=== PATIENT | female | born 1960 | race Caucasian/White ===

== ENCOUNTER 2019-08-05 11:38 | Outpatient (CLI) | payer OTHER, SELFPAY ==
--- NOTE | ~2019-08-05 | XR_ITS ---
EXAMINATION: XR shoulder RT min 2V DATE: 08/05/2019 12:19 INDICATION: Right shoulder injury and pain. TECHNIQUE: 4 views of right shoulder were obtained. COMPARISON: None. FINDINGS: Bone alignment is normal. No fracture. Glenoid humeral joint is normal. There is mild acrom ioclavicular joint osteoarthritis. IMPRESSION: 1. Mild right acromioclavicular joint osteoarthritis. Reviewed, dictated and finalized at location A. LOGY TEACHER
== END 2019-08-05 11:39 | disposition home or self-care (01) ==
LOC: ANHIMG 11:47
PROVIDERS: PCP Internal Medicine; Visit Provider Internal Medicine
DX: M19.011 Primary osteoarthritis, right shoulder (principal)
CPT/HCPCS: 73030

== ENCOUNTER 2020-10-27 23:06 | Emergency (ER) | payer OTHER, SELFPAY ==
--- NOTE | ~2020-10-27 | CT_ITS ---
EXAMINATION: CT brain wo con INDICATION: Weakness COMPARISON: 01/10/2018 TECHNIQUE: Standard unenhanced head CT. The dose-length product (DLP) was 605.33 mGy-cm. The mA was a djusted according to patient size. Iterative reconstruction technique was employed. FINDINGS: Motion artifact slightly limits the examination. There is no intracranial hemorrhage, acute infarction, or abnormal mass lesion. The ventricles are normal. There is no abnormal mass effect or midline shift. The burgos-white matter differentiation is normal. The basal cisterns are patent. The or bits are normal. The paranasal sinuses, mastoids and calvarium are normal. IMPRESSION: 1. No acute intracranial abnormality. Reviewed, dictated and finalized at location A.
--- NOTE | ~2020-10-27 | XR_ITS ---
EXAMINATION: XR chest 1V 10/27/2020 23:56 INDICATION: Weakness. Status post multiple falls. PROCEDURE: AP upright view of the chest COMPARISON: 01/11/2018 FINDINGS: There are lingular infiltrates which may represent atelectasis/scarring versus pneumonia. T he cardiomediastinal silhouette is within normal limits. There are no pleural effusions. There is n o pneumothorax suspected. IMPRESSION: 1: Lingular infiltrates, differential diagnosis includes atelectasis/scarring versus developing pneu monia. Reviewed, dictated and finalized at location A. IMPRESSION: 1: Lingular infiltrates, differential diagnosis includes atelectasis/scarring versus developing pneumonia.
[2020-10-27 23:11] VITALS: BP 100/69; PULSE 73; RESP 16; TEMP 36.4; O2SAT 100
[2020-10-27 23:52] LABS: Basophils Absolute Auto 0.1 K/mm3 (0.0-0.1); Basophils Percent Auto 1.2 % (0.2-1.2); Eosinophils Absolute Auto 0.2 K/mm3 (0-0.3); Eosinophils Percent Auto 3.7 % (0-4.4); Hematocrit 35.9 % (37.0-47.0); Hemoglobin 11.8 g/dL (12.0-15.0); Immature Granulocyte Absolute 0.05 K/mm3 (0.00-0.031); Immature Granulocyte Percent A 0.8 % (0-0.5); Lymphocytes Absolute Auto 1.71 K/mm3 (0.9-3.2); Lymphocytes Percent Auto 26.2 % (18.3-44.2); Mean Corpuscular HGB Conc 32.9 g/dl (32-36); Mean Corpuscular Hemoglobin 31.9 pg (26-34); Mean Platelet Volume 9.8 fl (7.4-10.4); Monocytes Absolute Auto 0.9 K/mm3 (0.1-0.6); Neutrophils Absolute Auto 3.5 K/mm3 (1.3-6.7); Neutrophils Percent Auto 54.1 % (45.5-73.1); Platelet Count Result 165 k/mm3 (150-375); Red Cell Distribution Width 15.9 % (11.5-14.5); White Blood Count 6.5 K/mm3 (4.5-10.0)
[2020-10-27 23:56] LABS: Anion Gap 5 mmol/L (8-16); Blood Urea Nitrogen 21 mg/dL (7-17); Calcium 9.7 mg/dL (8.4-10.2); Carbon Dioxide 37 mmol/L (22-30); Chloride 95 mmol/L (98-107); Estimated CRCL calculation 6 ml/min; Estimated Glomerular Filt Rate 11; Glucose 99 mg/dL (65-105); INR 0.9; Lactic Acid Reflex 1.7 mmol/L (0.7-2.1); Potassium 3.1 mmol/L (3.4-5.0); Prothrombin Time 12.9 Seconds (11.1-14.7); Sodium 137 mmol/L (137-145)
[2020-10-27 23:57] LABS: Partial Thromboplastin Time 26.6 SECONDS (22.3-36.8)
[2020-10-28 00:09] LABS: Troponin I < 0.012 ng/mL (0.000-0.034)
[2020-10-28] MEDS: LACTATED RINGERS 1,000 ML 250 ML IV CONT (00:13)
--- NOTE | 2020-10-28 00:17 | ED.WEAKNESS ---
HPI - Weakness General Chief complaint: Weakness Stated complaint: weakness Time Seen by Provider: 10/27/20 23:27 Source: patient Mode of arrival: ambulatory Limitations: no limitations History of Present Illness HPI Narrative: Patient is a 60-year-old female brought in by EMS after a ground-level fall, near syncopal episode prior to arrival. Patient states that prior to the event she was smoking marijuana. Patient denies LOC. Patient states that she was asymptomatic prior to the fall. She denies any head, neck, chest, back or any extremity pain/injury. Patient states that she is back to baseline and has no complaints at this time. Per EMS, blood pressure was 72/46, was given 200 mL of NS, brought it back up to 90/60's. Related Data Allergies Allergy/AdvReac Type Severity Reaction Status Date / Time hydrocodone Allergy Severe RASH Verified 01/10/18 19:07 aspirin Allergy Mild Unverified 01/10/18 19:07 ibuprofen Allergy Mild Unverified 01/10/18 19:07 Review of Systems Review of Systems: All systems reviewed & are unremarkable except as noted in HPI and below Constitutional: Constitutional: Denies body ache(s), Denies chills, Denies excessive sweating, Denies fatigue, Denies fever(s), Denies headache(s), Denies lethargy, Denies malaise and Denies weight loss Eyes: Eyes: Denies blurry vision, Denies change in vision and Denies loss of vision ENT: Denies dizziness, Denies ear discharge, Denies headache(s), Denies lip swelling, Denies epistaxis, Denies nasal congestion, Denies neck pain, Denies throat swelling and Denies tongue swelling Cardiovascular: Cardiovascular: Denies chest pain, Denies chest pain at rest, Denies chest pain with activity, Denies diaphoresis, Denies rapid heart rate, Denies edema, Denies irregular heart rhythm, Denies lightheadedness, Denies palpitations, Denies dyspnea and Denies dyspnea on exertion Respiratory: Respiratory: Denies chest congestion, Denies cough, Denies hemoptysis, Denies dyspnea and Denies dyspnea on exertion Gastrointestinal: Gastrointestinal: Denies abdominal pain, Denies melena, Denies hematochezia, Denies diarrhea, Denies nausea, Denies vomiting and Denies hematemesis Musculoskeletal: Musculoskeletal: Denies abnormal gait, Denies deformity, Denies joint swelling, Denies limited range of motion, Denies neck pain and Denies numbness Neurologic: Denies Abnormal speech present, Denies abnormal gait, Denies confusion, Denies dizziness, Denies headache(s), Denies focal weakness, Denies loss of vision, Denies numbness, Denies Other visual disturbances, Denies Sensory deficit (Neuro) and Denies weakness Psychiatric: Psychiatric: Denies confusion, Denies depression, Denies auditory hallucinations, Denies homicidal ideation and Denies suicidal ideation Endocrine: Endocrine: Denies cold intolerance, Denies excessive sweating, Denies fatigue, Denies heat intolerance and Denies palpitations Hematologic/Lymphatic: Hematologic/Lymphatic: Denies easy bleeding and Denies easy bruising Allergic/Immunologic: Allergic/Immunologic: Denies lip swelling, Denies throat swelling and Denies tongue swelling PMFSH Comments Past medical history: End-stage renal disease on dialysis Family history: Noncontributory Social history: Positive for smoker, no EtOH, occasional marijuana use Exam Const: General: cooperative, healthy appearing, comfortable, no acute distress, well developed, alert and awake; No confusion Nutritional Appearance: thin Orientation/consciousness: oriented to person, oriented to place, oriented to time, patient oriented x3 and No confusion Limitations: no limitations Other: Frail HENMT: Head: normal to inspection, normocephalic and atraumatic Ears: hearing grossly normal bilaterally, TM normal on the right and TM normal on the left General nose exam: Normal external nose present, Normal nares present and No nasal discharge present Face and sinus: normal facial exam Mouth: Yes Normal oral an
--- NOTE | 2020-10-28 00:28 | ECG_ITS ---
Measurements Intervals [place] Rate: 80 P: 63 WA: 153 QRS: 6 QRSD: 90 T: 49 QT: 391 QTc: 453 Interpretive Statements SINUS RHYTHM INCOMPLETE RIGHT BUNDLE BRANCH BLOCK BASELINE ARTIFACT- I, II, III BORDERLINE ECG Electronically Signed On 10-28-2020 7:02:06 CDT by Earl Sethi D.O.
[2020-10-28 01:12] VITALS: BP 134/82; PULSE 86; RESP 28; TEMP 36.6; O2SAT 100
[2020-10-28] MEDS: POTASSIUM CHLORIDE 20 MEQ PACKET (FOR LIQUID) PO (01:12)
== END 2020-10-28 02:41 | disposition home or self-care (01) ==
PROVIDERS: Emergency Provider Emergency Medicine; PCP Internal Medicine
DX: R55 Syncope and collapse (principal); N18.6 End stage renal disease; Z99.2 Dependence on renal dialysis; E87.6 Hypokalemia; F17.200 Nicotine dependence, unspecified, uncomplicated
CPT/HCPCS: 36415; 70450; 71045; 80048; 83605; 84484; 85025; 85610; 85730; 93005; 96360; 99284; A9270; J7120

== ENCOUNTER 2020-12-17 23:56 | Emergency (ER) | payer OTHER, SELFPAY ==
[2020-12-17 23:58] VITALS: BP 112/84; PULSE 81; RESP 14; TEMP 36.4; O2SAT 100
[2020-12-18 00:04] VITALS: PULSE 79
--- NOTE | 2020-12-18 00:13 | ED.GENADULT ---
HPI - General Adult General Chief complaint: Unspecified Stated complaint: not feeling right History of Present Illness HPI narrative: 60 yo female w/ h/o ESRD on dialysis presents to the ED for not feeling right . She reports that she was sitting outside in the heat when friends noted that she slumped over and started jerking. She believes that she was having a seizure. She reports history of one previous seizure. During this event she denies and change in consciousness, dizziness, weakness or falls. She does report being diaphoretic and feeling strange. No CP, SOB, palpitations, vomiting, diarrhea. Related Data Allergies Allergy/AdvReac Type Severity Reaction Status Date / Time hydrocodone Allergy Severe RASH Verified 12/18/20 00:26 aspirin Allergy Mild Unknown Unverified 12/18/20 00:26 ibuprofen Allergy Mild Unknown Unverified 12/18/20 00:26 Review of Systems Review of Systems: All systems reviewed & are unremarkable except as noted in HPI and below Eyes: Eyes: Reports no additional eye complaints ENT: Reports system reviewed and no additional complaints, except as documented Cardiovascular: Cardiovascular: Reports no additional cardiovascular complaints Respiratory: Respiratory: Denies dyspnea Gastrointestinal: Gastrointestinal: Reports no additional gastrointestinal complaints Neurologic: Reports system reviewed and no additional complaints, except as documented, Denies confusion, Denies dizziness, Denies syncope and Denies headache(s) [facility] Past Medical History Medical History (Updated 12/24/20 @ 15:36 by Brenden Philip MD) ESRD (end stage renal disease) on dialysis Social History Social History (Updated 12/24/20 @ 15:36 by Brenden Philip MD) Smoking status: Current every day smoker Alcohol intake: current Exam Const: General: no acute distress and alert Orientation/consciousness: patient oriented x3 HENMT: Head: normal to inspection Neck: Neck: normal visual inspection Resp: Effort & Inspection: normal respiratory effort Auscultation: clear to auscultation bilaterally, no rales, no rhonchi and no wheezes Cardio: Jugular venous distension: no JVD Rate: regular rate Rhythm: regular rhythm Heart sounds: no murmurs GI: Inspection: non-distended GI Palp: Yes Soft to palpation and No Tenderness to palpation present (GI) Skin: General skin exam: normal color Neuro: General: patient oriented x3 and moves all extremities Speech: normal speech Extrem: General: no edema Psych: Appearance: well kempt Affect: normal affect Course Vital Signs Vital signs: Vital Signs Temperature 36.4 C L 12/17/20 23:58 Pulse Rate 81 12/17/20 23:58 Respiratory Rate 14 12/17/20 23:58 Blood Pressure 112/84 12/17/20 23:58 Pulse Oximetry 100 12/17/20 23:58 Temperature 36.4 C L 12/17/20 23:58 Pulse Rate 88 12/18/20 01:34 Respiratory Rate 16 12/18/20 01:34 Blood Pressure 102/66 12/18/20 01:34 Pulse Oximetry 100 12/18/20 01:34 Medical Decision Making MDM Narrative Medical decision making narrative: Symptoms do not sound consistent with seizure. Could be near syncopal episode, although description is not typical. Labs reassuring. Medical Records Medical records reviewed: Yes I reviewed the external patient's medical records. Vital Signs Vital Signs: Vital Signs Temperature 36.4 C L 12/17/20 23:58 Pulse Rate 81 12/17/20 23:58 Respiratory Rate 14 12/17/20 23:58 Blood Pressure 112/84 12/17/20 23:58 Pulse Oximetry 100 12/17/20 23:58 Temperature 36.4 C L 12/17/20 23:58 Pulse Rate 88 12/18/20 01:34 Respiratory Rate 16 12/18/20 01:34 Blood Pressure 102/66 12/18/20 01:34 Pulse Oximetry 100 12/18/20 01:34 Lab Data Lab results reviewed: Yes I reviewed the patient's lab results. Result diagrams: 12/18/20 00:26 12/18/20 00:54 Labs: Lab Results 12/18/20 12/18/20 12/18/20 Range/Units 00:26 00:26
[2020-12-18 00:32] LABS: Basophils Absolute Auto 0.1 K/mm3 (0.0-0.1); Basophils Percent Auto 1.1 % (0.2-1.2); Eosinophils Absolute Auto 0.3 K/mm3 (0-0.3); Eosinophils Percent Auto 3.6 % (0-4.4); Hematocrit 38.6 % (37.0-47.0); Hemoglobin 12.2 g/dL (12.0-15.0); Immature Granulocyte Absolute 0.02 K/mm3 (0.00-0.031); Immature Granulocyte Percent A 0.3 % (0-0.5); Lymphocytes Absolute Auto 2.09 K/mm3 (0.9-3.2); Lymphocytes Percent Auto 28.1 % (18.3-44.2); Mean Corpuscular HGB Conc 31.6 g/dl (32-36); Mean Corpuscular Hemoglobin 31.7 pg (26-34); Mean Corpuscular Volume 100.3 fl (80-100); Mean Platelet Volume 10.6 fl (7.4-10.4); Monocytes Absolute Auto 0.9 K/mm3 (0.1-0.6); Monocytes Percent Auto 12.2 % (2.6-8.5); Neutrophils Absolute Auto 4.1 K/mm3 (1.3-6.7); Neutrophils Percent Auto 54.7 % (45.5-73.1); Platelet Count Result 161 k/mm3 (150-375); Red Blood Count 3.85 M/mm3 (4.2-5.4); Red Cell Distribution Width 13.9 % (11.5-14.5); White Blood Count 7.4 K/mm3 (4.5-10.0)
[2020-12-18] MEDS: SODIUM CHLORIDE 0.9% IV 250 ML 999 ML IV CONT (00:32)
[2020-12-18 00:47] LABS: Ethanol < 10 mg/dL (<10)
[2020-12-18 01:00] VITALS: BP 99/65; PULSE 83; RESP 14; O2SAT 99
[2020-12-18 01:15] LABS: Anion Gap 8 mmol/L (8-16); Blood Urea Nitrogen 22 mg/dL (7-17); Calcium 9.2 mg/dL (8.4-10.2); Carbon Dioxide 34 mmol/L (22-30); Chloride 94 mmol/L (98-107); Estimated Glomerular Filt Rate 13; Glucose 92 mg/dL (65-105); Magnesium 2.1 mg/dL (1.6-2.3); Potassium 3.9 mmol/L (3.4-5.0); Sodium 136 mmol/L (137-145)
[2020-12-18 01:34] VITALS: BP 102/66; PULSE 88; RESP 16; O2SAT 100
== END 2020-12-18 01:36 | disposition home or self-care (01) ==
PROVIDERS: Emergency Provider Emergency Medicine; PCP Internal Medicine
DX: E86.0 Dehydration (principal); N18.6 End stage renal disease; Z99.2 Dependence on renal dialysis; F17.200 Nicotine dependence, unspecified, uncomplicated
CPT/HCPCS: 36415; 80048; 80307; 83735; 85025; 96360; 99283; J7040

== ENCOUNTER 2021-01-12 11:50 | Emergency (ER) | payer OTHER, SELFPAY ==
[2021-01-12] VITALS (23 sets, daily range): BP systolic 99–140; BP diastolic 57–83; PULSE 63–88; RESP 12–20; TEMP 36.7–36.9; O2SAT 97–100
--- NOTE | 2021-01-12 14:57 | PC.NURSE ---
[facility] called to report that pt has not had dialysis since 01/07 due to clogged access.
--- NOTE | 2021-01-12 17:32 | ED.GENADULT ---
HPI - General Adult General Chief complaint: Extremity Injury, Lower Stated complaint: blocked dialysis port Time Seen by Provider: 01/12/21 16:56 Source: patient and RN notes reviewed Limitations: no limitations History of Present Illness HPI narrative: Patient is 60 years old white female, came to the emergency room because her dialysis cath is not working located on the right thigh. Last dialysis was on January 09. Patient went to dialysis center 4 days ago and could not dialyze her at that time. Received a phone call yesterday to go to [facility] for management. Patient is telling me that she was sitting in the emergency room for 8 hours, got tired then left home. Currently patient denying any fever, chills, nausea, vomiting, chest pain, shortness of breath, headache. Related Data Allergies Allergy/AdvReac Type Severity Reaction Status Date / Time hydrocodone Allergy Severe RASH Verified 01/12/21 17:00 aspirin Allergy Mild Unknown Verified 01/12/21 17:00 ibuprofen Allergy Mild Unknown Verified 01/12/21 17:00 acetaminophen [From Vicodin] Allergy Rash Verified 01/12/21 17:00 Review of Systems Review of Systems: CONSTITUTIONAL: Denies fever, chills, or sweats. EYES: Denies visual changes, redness, or discharge. ENT: Denies rhinorrhea, congestion, sore throat, or otalgia. CARDIOVASCULAR: Denies chest pain, palpitations, or edema. RESPIRATORY: Denies cough or dyspnea. GASTROINTESTINAL: Denies abdominal pain, nausea, vomiting, or diarrhea. GENITOURINARY: Denies dysuria or hematuria. SKIN: Denies rash or itching. MUSCULOSKELETAL: Denies back pain, joint pain, or myalgia. NEUROLOGIC: Denies headache, numbness, or weakness. PSYCHIATRIC: Denies anxiety or depression. PMFSH Past Medical History Medical History ESRD (end stage renal disease) on dialysis Social History Social History Smoking status: Current every day smoker Alcohol intake: current Exam Narrative: General appearance: Well-developed, well-nourished Skin: Normal color Head: Normocephalic, nontraumatic Eyes: Clear conjunctiva ENT: Oropharynx normal, ears normal, nose normal Neck: Supple, nontender Chest and respiratory: Airway patent, no respiratory distress, no accessory muscle use Heart: Regular rate/rhythm Abdomen: Soft, nontender, no organomegaly, quiet bowel sounds Vascular: Normal peripheral pulses, normal capillary refill. Musculoskeletal: Normal range of motion, nontender back Neurologic: Alert and oriented ?3, RESERVATIONS AGENT is normal as tested, no gross motor deficit Course Course Emergency Course: Stable Consultations Consultation #1: DR FAJARDO, hospitalist at [facility] who accepted patient transfer Date: 01/12/21 Time: 21:54 Consultation #2: Jasen Huynh. Patient civilian technician. Patient probably need interventional radiologist or a general surgeon for new shunt placement. Send patient to [facility] for management. Date: 01/12/21 Time: 22:00 Consultation #3: Dr. Mcmillan, ED of [facility] who accepted patient transfusion to the ED Date: 01/12/21 Time: 22:01 Vital Signs Vital signs: Vital Signs Temperature 36.7 C 01/12/21 12:07 Pulse Rate 88 01/12/21 12:07 Respiratory Rate 16 01/12/21 12:07 Blood Pressure 140/74 01/12/21 12:07 Pulse Oximetry 100 01/12/21 12:07 Temperature 36.9 C 01/12/21 16:50 Pulse Rate 83 01/12/21 17:01 Respiratory Rate 14 01/12/21 17:01 Blood Pressure 120/79 01/12/21 17:01 Pulse Oximetry 99 01/12/21 17:01 Medical Decision Making Vital Signs Vital Signs: Vit
--- NOTE | 2021-01-12 18:04 | ECG_ITS ---
Measurements Intervals [place] Rate: 74 P: 56 UT: 137 QRS: -2 QRSD: 80 T: 47 QT: 374 QTc: 415 Interpretive Statements SINUS RHYTHM WITH SINUS ARRHYTHMIA NORMAL ECG Electronically Signed On 01-12-2021 18:50:59 CDT by Earl Sethi D.O.
[2021-01-12 20:05] LABS: Basophils Absolute Auto 0.1 K/mm3 (0.0-0.1); Basophils Percent Auto 1.4 % (0.2-1.2); Eosinophils Absolute Auto 0.4 K/mm3 (0-0.3); Eosinophils Percent Auto 5.6 % (0-4.4); Hematocrit 37.2 % (37.0-47.0); Hemoglobin 11.9 g/dL (12.0-15.0); Immature Granulocyte Absolute 0.03 K/mm3 (0.00-0.031); Immature Granulocyte Percent A 0.4 % (0-0.5); Lymphocytes Absolute Auto 1.96 K/mm3 (0.9-3.2); Lymphocytes Percent Auto 28.3 % (18.3-44.2); Mean Corpuscular Hemoglobin 31.4 pg (26-34); Mean Corpuscular Volume 98.2 fl (80-100); Mean Platelet Volume 10.2 fl (7.4-10.4); Monocytes Absolute Auto 0.7 K/mm3 (0.1-0.6); Monocytes Percent Auto 9.5 % (2.6-8.5); Neutrophils Absolute Auto 3.8 K/mm3 (1.3-6.7); Neutrophils Percent Auto 54.8 % (45.5-73.1); Platelet Count Result 288 k/mm3 (150-375); Red Blood Count 3.79 M/mm3 (4.2-5.4); Red Cell Distribution Width 14.3 % (11.5-14.5); White Blood Count 6.9 K/mm3 (4.5-10.0)
[2021-01-12 20:06] LABS: Anion Gap 10 mmol/L (8-16); Blood Urea Nitrogen 52 mg/dL (7-17); Calcium 9.5 mg/dL (8.4-10.2); Carbon Dioxide 22 mmol/L (22-30); Chloride 109 mmol/L (98-107); Estimated CRCL calculation 6 ml/min; Estimated Glomerular Filt Rate 6; Glucose 81 mg/dL (65-110); Potassium 4.8 mmol/L (3.4-5.0); Sodium 141 mmol/L (137-145)
--- NOTE | 2021-01-12 20:45 | PC.NURSE ---
Updated patient with Dr Mcdaniels. Patient will be transferred to [facility]. Transfer due to [facility] having interventional radiology. Pt agreeable to transfer
--- NOTE | 2021-01-12 21:59 | PC.NURSE ---
Report called to ADOLFO Rendon, at [facility] at [phone]. ([phone]). Patient has been accepted to room [address] Chiu. Hill, loading unit tool setter, setting up EMS transport at this time.
--- NOTE | 2021-01-12 22:04 | PC.NURSE ---
made contact with [email or web address] to transfer pt to [facility] with [id number]
--- NOTE | 2021-01-12 22:41 | PC.NURSE ---
pt seen attempting to walk out to the parking lot to stretch her legs because theyre stiff. this rn informed pt that she would have to stay in her room and isn't allowed to walk around the parking lot. pt ambulated back to room H3 at this time.
--- NOTE | 2021-01-12 23:48 | PC.NURSE ---
[facility] has arrived and is aware that pt is going to [facility]
== END 2021-01-13 00:03 | disposition short-term general hospital (02) ==
PROVIDERS: Emergency Provider Emergency Medicine; PCP Internal Medicine
DX: T82.49XA Other complication of vascular dialysis catheter, initial encounter (principal); N18.6 End stage renal disease; F17.210 Nicotine dependence, cigarettes, uncomplicated
CPT/HCPCS: 36415; 80048; 85025; 93005; 99285

== ENCOUNTER 2021-02-01 13:23 | Outpatient (CLI) | payer OTHER, SELFPAY ==
--- NOTE | ~2021-02-01 | XR_ITS ---
EXAMINATION: XR forearm RT 2V INDICATION: Right forearm pain, initial encounter TECHNIQUE: Two views of the right forearm are obtained on three radiographs. COMPARISON: 06/11/2010 FINDINGS: There is an acute, traumatic, closed, oblique fracture of the distal ulna which does not ap pear to involve the distal articular surface. Soft tissue swelling surrounds the fracture. No additio nal acute osseous findings are evident. 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 IMPRESSION: 1. Acute fracture of the distal ulna. Reviewed, dictated and finalized at location A.
== END 2021-02-01 13:24 | disposition home or self-care (01) ==
PROVIDERS: PCP Internal Medicine; Visit Provider Internal Medicine
DX: M79.631 Pain in right forearm (principal); S52.601A Unspecified fracture of lower end of right ulna, initial encounter for closed fracture
CPT/HCPCS: 73090

== ENCOUNTER 2021-08-04 20:07 | Inpatient (IN) | payer OTHER, SELFPAY ==
--- NOTE | ~2021-08-04 | CT_ITS ---
EXAMINATION: CT brain wo con DATE: 08/06/2021 14:02 INDICATION: Circumferential speech. Altered mental status. TECHNIQUE: Computed tomography (CT) of the head was performed without intravenous contrast. The mA wa s adjusted according to patient size. Iterative reconstruction technique was employed. The dose-lengt h product was 605.33 mGy-cm. COMPARISON: Head CT 10/28/2020 FINDINGS: There is no intracranial hemorrhage, acute infarction, or abnormal intracranial mass lesion . The ventricles are normal in size. The orbits are normal. The paranasal sinuses are clear. The mast oid air cells are normal. IMPRESSION: 1. Normal brain. Reviewed, dictated and finalized at location A. ET RISK SPECIALIST IMPRESSION: 1. Normal brain.
[2021-08-04 20:31] VITALS: BP 136/83; PULSE 117; RESP 18; TEMP 36.7; O2SAT 100
--- NOTE | 2021-08-04 20:32 | ED.PSYCH ---
HPI - Psych General Chief Complaint: Psychiatric Symptoms <Slava Joseph MD - Last Filed: 08/04/21 22:15> Stated Complaint: PSYCH ISSUE <Slava Joseph MD - Last Filed: 08/04/21 22:15> Time Seen by Provider: 08/04/21 20:10 <Slava Joseph MD - Last Filed: 08/04/21 22:15> History of Present Illness HPI Narrative: Patient is a 61-year-old female who presents the ER by EMS for psychiatric evaluation. Reports she has not been taking her medications at home. She was found outside of her home naked when EMS arrived. Patient denies SI/HI. She has very flat affect and will not give me additional information. She cannot tell me what she takes for her mental health. <Slava Joseph MD - Last Filed: 08/04/21 22:15> Related Data Allergies/Adverse Reactions: Allergies Allergy/AdvReac Type Severity Reaction Status Date / Time hydrocodone Allergy Severe RASH Verified 01/12/21 17:00 aspirin Allergy Mild Unknown Verified 01/12/21 17:00 ibuprofen Allergy Mild Unknown Verified 01/12/21 17:00 acetaminophen [From Vicodin] Allergy Rash Verified 01/12/21 17:00 <Slava Joseph MD - Last Filed: 08/04/21 22:15> Review of Systems Review of Systems: All systems reviewed & are unremarkable except as noted in HPI and below <Slava Joseph MD - Last Filed: 08/04/21 22:15> Constitutional: Constitutional: Denies chills and Denies fever(s) <Slava Joseph MD - Last Filed: 08/04/21 22:15> Cardiovascular: Cardiovascular: Denies chest pain and Denies radiating jaw, neck or arm pain <Slava Joseph MD - Last Filed: 08/04/21 22:15> Respiratory: Respiratory: Denies cough and Denies dyspnea <Slava Joseph MD - Last Filed: 08/04/21 22:15> Gastrointestinal: Gastrointestinal: Denies abdominal pain, Denies nausea and Denies vomiting <Slava Joseph MD - Last Filed: 08/04/21 22:15> Psychiatric: Psychiatric: Denies anxiety, Reports depression, Denies homicidal ideation and Denies suicidal ideation <Slava Joseph MD - Last Filed: 08/04/21 22:15> [facility] Past Medical History Medical History: Medical History Bipolar 1 disorder ESRD (end stage renal disease) on dialysis Hypertension <Slava Joseph MD - Last Filed: 08/04/21 22:15> Social History Social History: Social History Smoking status: Current every day smoker Alcohol intake: current Substance use type: does not use <Slava Joseph MD - Last Filed: 08/04/21 22:15> Exam Narrative: GENERAL: Well-appearing, thin, and in no acute distress. HEAD: Normocephalic, atraumatic. EYES: PERRL and EOMI. ENT: Mucous membranes moist. CHEST: Clear to auscultation. No respiratory distress. HEART: Regular rate and rhythm. Normal peripheral pulses. ABDOMEN: Soft, nontender, nondistended. EXTREMITIES: Normal range of motion. No edema. SKIN: Warm, dry, no rash. NEURO: Alert and oriented x3. PSYCH: Flat affect, not responding to internal stimuli, denies SI/HI. <Slava Joseph MD - Last Filed: 08/04/21 22:15> Course Reevaluation(s) Reevaluation #1: Patient has been refusing to give blood. I been in to speak with the patient about medical evaluation given her presentation the ER. Patient cannot hold a conversation to explain why she ended up in the ER. She said she was naked because she is having sex with the magic man. She cannot verbalize why she ended up in the emergency department. Discussed with her that we will give her medication to obtain blood work since is her duty to ensure that she is medically stable since she cannot hold conversation in regards anything that occurred this evening. NAEEM to Dr. Marie. <Slava Joseph MD - Last Filed: 08/04/21 22:15> Received signout pending labs and reassessment. Labs returned and are stable given her chronic conditions she is medically stab
[2021-08-04 22:19] VITALS: BP 99/50; PULSE 77; RESP 18; TEMP 37; O2SAT 100
[2021-08-04] MEDS: LORazepam INJ (*CRX) 2 MG/ML VIAL IM (22:23)
[2021-08-04 22:51] LABS: Basophils Absolute Auto 0.1 K/mm3 (0.0-0.1); Basophils Percent Auto 1.3 % (0.2-1.2); Eosinophils Absolute Auto 0.1 K/mm3 (0-0.3); Eosinophils Percent Auto 1.8 % (0-4.4); Hematocrit 33.4 % (37.0-47.0); Immature Granulocyte Absolute 0.02 K/mm3 (0.00-0.031); Immature Granulocyte Percent A 0.3 % (0-0.5); Lymphocytes Absolute Auto 1.58 K/mm3 (0.9-3.2); Lymphocytes Percent Auto 23.2 % (18.3-44.2); Mean Corpuscular HGB Conc 32.9 g/dl (32-36); Mean Corpuscular Hemoglobin 31.5 pg (26-34); Mean Corpuscular Volume 95.7 fl (80-100); Monocytes Absolute Auto 0.8 K/mm3 (0.1-0.6); Monocytes Percent Auto 12.1 % (2.6-8.5); Neutrophils Absolute Auto 4.2 K/mm3 (1.3-6.7); Neutrophils Percent Auto 61.3 % (45.5-73.1); Platelet Count Result 243 k/mm3 (150-375); Red Blood Count 3.49 M/mm3 (4.2-5.4); Red Cell Distribution Width 14.6 % (11.5-14.5); White Blood Count 6.8 K/mm3 (4.5-10.0)
[2021-08-04 23:04] LABS: Ethanol < 10 mg/dL (<10)
[2021-08-04 23:05] LABS: Alanine Aminotransferase 22 U/L (4-35); Albumin Level 4.7 g/dL (3.5-5.1); Alkaline Phosphatase 81 U/L (38-126); Anion Gap 15 mmol/L (8-16); Aspartate Amino Transferase 44 U/L (14-36); Bilirubin,Total 0.4 mg/dL (0.2-1.3); Blood Urea Nitrogen 52 mg/dL (7-17); Calcium 9.7 mg/dL (8.4-10.2); Carbon Dioxide 24 mmol/L (22-30); Chloride 100 mmol/L (98-107); Estimated CRCL calculation 6 ml/min; Estimated Glomerular Filt Rate 6; Glucose 80 mg/dL (65-110); Potassium 4.1 mmol/L (3.4-5.0); Sodium 139 mmol/L (137-145)
[2021-08-04 23:52] LABS: SARS-CoV-2 RNA PCR Negative
[2021-08-04 23:57] LABS: Color Urine Yellow (Yellow)
[2021-08-04 23:58] LABS: Blood Urine Trace (Negative)
[2021-08-04 23:59] LABS: Add Urine Microscopic? YES
[2021-08-05] VITALS (9 sets, daily range): BP systolic 107–140; BP diastolic 63–84; PULSE 62–118; RESP 12–20; TEMP 36.4–36.6; O2SAT 96–99
[2021-08-05] LABS: Appearance Urine Clear (Clear); Glucose Urine UA Negative (Negative); Ketones Urine 1+ mg/dL (Negative); Protein Urine 1+ mg/dL (Negative); Specific Grav Ur 1.015 (1.001-1.035); pH Urine 6.5 (5.0-9.0)
[2021-08-05 00:01] LABS: Leukocyte Esterase Ur Negative LEU/UL (Negative); Nitrate Urine Negative (Negative); Urobilinogen Urine 0.2 mg/dL (<2.0)
[2021-08-05 00:02] LABS: Bilirubin Urine 1+ (Negative); RBC Urine 0-2 /hpf (0-2); WBC Urine 0-3 /hpf (0-3)
[2021-08-05 00:25] LABS: Amphetamine Screen Urine Negative (Negative); Barbiturate Screen Urine Negative (Negative); Benzodiazepines Screen Urine Negative (Negative); Cannabinoid Screen Urine Positive (Negative); Cocaine Screen Urine Negative (Negative); Methadone Screen Urine Negative (Negative); Opiate Screen Urine Negative (Negative); Phencyclidine Screen Urine Negative (Negative)
--- NOTE | 2021-08-05 00:44 | PC.NURSE ---
PT IS MEDICALLY CLEAR TO BE EVALUATED BY [facility] AT THIS TIME.
--- NOTE | 2021-08-05 00:47 | PC.NURSE ---
[facility] CONTACTED, SOMEONE WILL BE OUT SHORTLY TO EVALUATE HER.
[2021-08-05] MEDS: traZODone HCL 25 MG TABLET PO (04:25)
--- NOTE | 2021-08-05 06:06 | PC.NURSE ---
Drilling Machine Runner from [facility] called asking for info about pt's dialysis schedule. Pt reports going to [facility] on Monday, , and Monday. [facility] stated they will call back.
--- NOTE | 2021-08-05 07:35 | PC.NURSE ---
Bedside report from ADOLFO Feldman. Pt sleeping at this time. No needs or requests. Door open and near nursing station.
--- NOTE | 2021-08-05 08:10 | PC.NURSE ---
Spoke with [facility], stated that pt is medically cleared for eval. [facility] stated they would be here for assess pt.
--- NOTE | 2021-08-05 08:32 | PM.CNNEP ---
Assessment and Plan Additional Plan 1. The patient has end-stage renal disease. She went to dialysis on Monday apparently. She is due for dialysis today. Her potassium is in good shape. We will use a 3K bath. Her volume status looks good as well. Will remove 1-2 L as tolerated. 2. The patient has hypertension. Her blood pressure is under good control. It is not clear what she is on for her blood pressure. Will try to get some records. 3. Patient has bipolar disorder. She will get back on her medications. Per hospitalist. 4. anemia hb 11. hold off on EPO 5. BRENDEN check phos tomorrow History of Present Illness Reason for Consult Consult date: 08/05/21 Chief Complaint Chief complaint: acute psychosis,dialysis patient History of Present Illness Narrative: Abby is a very pleasant 61-year-old lady who has multiple medical problems including end-stage renal disease on dialysis 3 times a week on Saturdays, hypertension, bipolar 1 disorder. The patient went to dialysis on Monday and the dialysis was apparently on room eventful. Yesterday evening she was found in front of her house without clothes on and confused. They called 911 and she was brought over here to [facility] for evaluation. She has stopped taking her medications for her bipolar. She is confused and somewhat agitated. She is due for dialysis today so renal consultation was requested. The patient has no shortness of breath. No belly pain. No chest pain. No nausea vomiting diarrhea or constipation. She will not tell me where she goes to dialysis but I do know the Dr. Jasen Armendariz is her manager of disaster recovery. He does not come here so I was asked to care for her while she is here. She does not drink. She says she smokes a few cigarettes per day. Review of Systems Review of Systems: Incompletely attained because of medical condition Constitutional: Constitutional: Reports no additional constitutional complaints Eyes: Eyes: Reports no additional eye complaints ENT: Reports system reviewed and no additional complaints, except as documented Cardiovascular: Cardiovascular: Reports no additional cardiovascular complaints Respiratory: Respiratory: Reports no additional respiratory complaints Gastrointestinal: Gastrointestinal: Reports no additional gastrointestinal complaints Musculoskeletal: Musculoskeletal: Reports no additional musculoskeletal complaints Neurologic: Reports system reviewed and no additional complaints, except as documented Psychiatric: Psychiatric: Reports as per HPI Endocrine: Endocrine: Reports no additional endocrine complaints PMFSH Past Medical History Medical History Bipolar 1 disorder ESRD (end stage renal disease) on dialysis Hypertension Social History Social History Smoking status: Former smoker Alcohol intake: current Substance use: never Substance use type: does not use Spiritual care concerns: No Meds Home Medications and Allergies Home Medications Medication Instructions Recorded Confirmed Type B complex with C 20-folic acid 1 cap PO DAILY 08/05/21 08/05/21 History [Triphrocaps] B complex-vitamin C-folic acid 1 tablet PO DAILY 08/05/21 08/05/21 History [Jackie-Ml] bupropion HCl 150 mg PO DAILY 08/05/21 08/05/21 History calcium acetate(phosphat bind) 667 mg PO TIDWM 08/05/21 08/05/21 History divalproex 250 mg PO TID 08/05/21 08/05/21 History simvastatin 40 mg PO HS 08/05/21 08/05/21 History Allergies Allergy/AdvReac Type Severity Reaction Status Date / Time hydrocodone Allergy Severe RASH Verified 08/05/21 10:50 aspirin Allergy Mild Unknown Verified 08/05/21 10:50 ibuprofen Allergy Mild Unknown Verified 08/05/21 10:50 Vital Signs Vital Signs - 24 hr 08/04/21 20:31 08/04/21 22:19 08/05/21 06:11 Temperature 36.7 C 37.0 C Pulse Rate
--- NOTE | 2021-08-05 10:30 | ADMGEN ---
This patient, Abby Wheatley, was admitted to Medical Room 348-01. Patient/family oriented to hospital policies and general routines including ID bracelet, bed and alarms, visiting hours, pain management, procedures, bathroom and other care routines, personal items, smoking policy, room service/diet, and visiting hours. Information on how to activate the Rapid Response Team has been discussed. Patient/Family are encouraged to report perceived risks to care and to ask questions if they do not understand what they are told or what they should do.
[2021-08-05 11:17] LABS: Hepatitis B Surface Antigen Negative (Negative)
--- NOTE | 2021-08-05 11:21 | PCCCNOTE ---
Addendum entered by Mirtha Martinez RN 08/05/21 19:14: Meghan has finished reassessing patient, states that she does not have any clinical grounds for inpatient admission or involuntary holding. Meghan states that patient reported hitting her head and asked if CT was done. Trena bedside RN requested to look, and CT was not done. Meghan asks if safety plan is needed, Trena called to hospitalist educational technology specialist, Irais Montoya but no answer. inside barrel lathe operator reaching out to hospitalist and bedside RN Trena will be giving report to maintenance technician 3rd shift and all will be reported to hospitalist Irais for orders and decisions. Addendum entered by Mirtha Martinez RN 08/05/21 18:01: Phone call received from Meghan at [facility], she will be coming back out to reassess patient and complete full involuntary paperwork, should be here in about 20 minutes. Screeners/bowling or skating front desk clerk notified, 2nd medical inside barrel lathe operator notified. Addendum entered by Mirtha Martinez RN 08/05/21 17:33: Late entry: Spoke with Aimee Barrera at [facility] at 1600 at [phone], She states they received referral but didn't go further since only had pages 1-2 of involuntary petition. She advises to have full petition sent. Called to Peggy at [place], she thought that she had seen it all together when she came but unsure. She states that possibly the doctor could do it or to call back to [facility] and they will either send someone out tonight or no matter what they will need to receive a call at 0400 as involuntary will need updated and patient will need reassessed. Double checked in chart on floor and in ER with no success. Called to [facility] spoke with intake, advised that involuntary petition missing pages 3-5 and need to be reassessed either tonight and full form completed or around 0400. Intake will call care partner back to inform of what they will do. Addendum entered by Mirtha Martinez RN 08/05/21 15:45: Called to [facility], per intake they do have referral and if a bed opens they will review it. Called to [facility] to see if referral has been received transferred to kindra , Called back then transferred to unit then transferred to Clinical Chair Lift Operator, left a requesting follow in regards to referral and requested a call back. Addendum entered by Mirtha Martinez RN 08/05/21 14:56: Called to [facility], spoke with bedside ADOLFO Alonso, advised that continuing to work on placement, but no placement found they need to call back to crisis at 0400 for reassessment, provided # [phone]. Celeste verbalized understanding. Called to Peggy at Crisis provided room # and phone # for [facility]. Addendum entered by Mirtha Martinez RN 08/05/21 12:03: Fax unsuccessful to [facility] and [facility], called to [facility] to confirm fax numbers. Peggy to call care partner back. Called to [facility] and confirmed fax # and called to [facility] and confirmed fax #. Refax'd to facilities. Original Note: Late entry 1121: Called by studio operations engineer in chargeADOLFO Alonso to ER to meet with Dr. Mcdaniels. Spoke with Dr. Mcdaniels, Hospitalist Dr. Eason requesting care coordination to assist with behavorial health placement as patient has medical needs. Called to Crisis, spoke with Lana that states that Peggy is at the hospital now. Spoke with Peggy in ER, assessment and involunatary form already completed last night. Peggy to work on placement that can accomodate dialysis needs. Called to Dr. Eason and left him a message that care coordination involved and assisting crisis with placement and provided phone number for call back. Care Coordination and Crisis calling facilities, Peggy: The following faciliites can not accept dialysis and inpatient bh: [facility], [facility], [facility], [facility], [facility], [facility], [facility], [facility], [facility], [facility]. Received a call back from Rosangela Stern, no beds today and no discharges but can call daily Possible but no current beds: [facility]. Per Peggy hartman
--- NOTE | 2021-08-05 12:31 | PM.EVENT ---
Event Note Event Note Event Note: pt is on dialysis. wicho it wel. she was seen at 12:15pm
--- NOTE | 2021-08-05 12:35 | PM.IMHP ---
H&P: HPI History of Present Illness Date/Time: 08/05/21 12:35 Chief Complaint: In need of psychiatric evaluation. Narrative: This is a 61-year-old with end-stage renal disease on hemodialysis, chronic anemia, and bipolar disorder who presented to the emergency department last evening via EMS in need of psychiatric evaluation. The patient is only a fair historian and as such some of the following information is obtained via a review of her electronic medical records. According to EMS documentation, police responded to a call at a local apartment complex after the patient was found outdoors acting strangely and without clothes. The patient would not elaborate on this. It is my understanding that she was evaluated by crisis who did not feel that she met criteria for inpatient and in fact the patient has adamantly denied suicidal and homicidal ideations. She does admit that she has not been compliant with her medication and her valproic acid level today was undetectable. She endorses being in a manic phase for ?quite a while? and she is okay with starting her medications again. Due to the uncertainty of her disposition and the fact that she was supposed to have dialysis today, she is being admitted overnight. The only complaint she has at the time my evaluation is of cramps in her legs which is typical for her on dialysis days, she is requesting the Sinemet that she takes on dialysis days. On exam she was noted to have an abrasion on the right cheek and she tells me that she slipped and fell into a brick wall but she sustained no injuries aside from the abrasion. Review of Systems Review of Systems: Twelve systems were reviewed. She denies fever, chills, and sweats. No headache. No cold or flu symptoms. No sick contacts. No chest pain or shortness of breath. No cough. No nausea, vomiting, or diarrhea. Except as documented, all other systems were reviewed and are negative. [facility] Past Medical History Medical History (Updated 08/05/21 @ 13:22 by Beverley Montoya PA-C) Bipolar disorder Carpal tunnel syndrome Chronic anemia Depression with anxiety End-stage renal disease on hemodialysis Secondary to lithium toxicity. Gastric ulcer History of ganglion cyst Hypertension Restless leg syndrome Surgical History Surgical History (Updated 08/05/21 @ 12:47 by Beverley Montoya PA-C) History of colonoscopy with polypectomy History of tonsillectomy History of tubal ligation Status post creation of arteriovenous fistula (03/2015) Family History Family History Other Chronic obstructive pulmonary disease Diabetes mellitus Obstructive sleep apnea Social History Social History (Updated 08/05/21 @ 22:39 by Beverley Montoya PA-C) Social History: Surrogate decision maker: Jeb Ureña, mother. Code status: Full code. Smoking status: Former smoker Alcohol intake: never Substance use: never Additional living arrangements comments: The patient lives in an apartment in [place]. Additional occupation/education comments: Disabled. Meds Home Medications and Allergies Home Medications Medication Instructions Recorded Confirmed Type B complex with C 20-folic acid 1 cap PO DAILY 08/05/21 08/05/21 History [Triphrocaps] B complex-vitamin C-folic acid 1 tablet PO DAILY 08/05/21 08/05/21 History [Jackie-Ml] bupropion HCl 150 mg PO DAILY 08/05/21 08/05/21 History calcium acetate(phosphat bind) 667 mg PO TIDWM 08/05/21 08/05/21 History divalproex 250 mg PO TID 08/05/21 08/05/21 History simvastatin 40 mg PO HS 08/05/21 08/05/21 History Allergies Allergy/AdvReac Type Severity Reaction Status Date / Time hydrocodone Allergy Severe RASH Verified 08/05/21 10:50 aspirin Allergy Mild Unknown Verified 08/05/21 10:50 ibuprofen Allergy Mild Unknown Verified 08/05/21 10:50 Vital Signs Vital Signs - 24 hr 08/04/21 20:31 08/04/21 22:19 08/05/21 06:11
[2021-08-05] MEDS: ACETAMINOPHEN 325 MG TABLET 650 MG PO (13:10)
[2021-08-05 14:12] LABS: Valproic Acid < 10.0 ug/mL (50-120)
[2021-08-05 14:48] LABS: Vitamin B12 > 1000.0 pg/mL (239-931)
[2021-08-05] MEDS: SIMVASTATIN 20 MG TABLET 40 MG PO (21:12)
[2021-08-05] MEDS: CARBIDOPA/LEVODOPA 10/100 MG TABLET 1 TABLET PO (21:12)
[2021-08-05] MEDS: hydrOXYzine HCL 10 MG TABLET PO (23:24)
[2021-08-06 05:24] LABS: Albumin Level 4.4 g/dL (3.5-5.1); Anion Gap 11 mmol/L (8-16); Blood Urea Nitrogen 26 mg/dL (7-17); Carbon Dioxide 34 mmol/L (22-30); Chloride 95 mmol/L (98-107); Estimated CRCL calculation 9 ml/min; Estimated Glomerular Filt Rate 9; Glucose 76 mg/dL (65-110); Magnesium 2.2 mg/dL (1.6-2.3); Phosphorus 4.6 mg/dL (2.5-4.5); Potassium 4.3 mmol/L (3.4-5.0); Sodium 140 mmol/L (137-145)
[2021-08-06 06:00] VITALS: BP 129/76; PULSE 115; RESP 21; TEMP 36.4; O2SAT 100
[2021-08-06] MEDS: DIVALPROEX SODIUM DR 250 MG TABEC PO ×3 (08:39→17:03)
[2021-08-06] MEDS: CALCIUM ACETATE 667 MG TABLET PO ×3 (08:39→17:03)
[2021-08-06] MEDS: VITAMIN B CMPLX/VIT C/FOLIC AC 1 CAPSULE 1 CAP PO (08:39)
[2021-08-06] MEDS: buPROPion HCL XL (24 HR) 150 MG TABCR PO (08:39)
--- NOTE | 2021-08-06 09:44 | PM.PNNEP ---
Progress Note: A&P Additional Plan 1. The patient has end-stage renal disease. She had dialysis yesterday. Her potassium is normal. Her volume status looks good as well. Will get another treatment tomorrow if she is still here. 2. The patient has hypertension. Her blood pressure is under good control. 3. Patient has bipolar disorder. She is back on her medications. Valproic acid level was expectedly low. 4. anemia hb was 11. hold off on EPO. Check again tomorrow. 5. BRENDEN calcium and phosphorus are under good control. Subjective Date/time seen: 08/06/21 09:44 Interval history: Abby is feeling better today. She is much less angry and much less confused. She is more sad that she yelled at her mother before she came in the hospital. Review of Systems Cardiovascular: Cardiovascular: Reports no additional cardiovascular complaints Respiratory: Respiratory: Reports no additional respiratory complaints Gastrointestinal: Gastrointestinal: Reports no additional gastrointestinal complaints Genitourinary: Genitourinary: Reports no additional female genitourinary complaints Exam Narrative: WDWN in NAD skin no rash head ncat lungs clear cor reg no rub abd BS+ nontender and soft ext no edema. Objective Data Vital Signs Vital Signs: Vital Signs - 24 hr 08/05/21 10:28 08/05/21 10:41 08/05/21 11:00 Temperature 36.6 C Pulse Rate 62 105 H 98 Respiratory Rate 12 Blood Pressure 112/80 140/82 131/79 Pulse Oximetry 98 08/05/21 11:30 08/05/21 12:00 08/05/21 14:40 Temperature 36.4 C Pulse Rate 95 100 102 H Respiratory Rate 18 Blood Pressure 131/77 121/72 118/63 Pulse Oximetry 96 08/05/21 18:00 08/05/21 22:00 08/06/21 06:00 Temperature 36.4 C 36.4 C 36.4 C Pulse Rate 118 H 109 H 115 H Respiratory Rate 19 20 21 H Blood Pressure 131/80 107/77 129/76 Pulse Oximetry 99 98 100 Intake/Output Intake/Output: Intake & Output 08/03/21 08/04/21 08/05/21 08/06/21 23:59 23:59 23:59 23:59 Intake Total 490 600 Output Total 230 Balance -230 490 600 Meds/Results Medications: Active Medications Generic Name Dose Route Start Last Admin Trade Name Mary PRN Reason Stop Dose Admin Bupropion HCl 150 mg 08/06/21 09:00 08/06/21 08:39 Bupropion Hcl Xl (24 Hr) 150 Mg Tabcr PO 150 mg DAILY YOLANDA Administration Calcium Acetate 667 mg 08/06/21 08:00 08/06/21 08:39 Calcium Acetate 667 Mg Tablet PO 667 mg TIDWM YOLANDA Administration Divalproex Sodium 250 mg 08/06/21 09:00 08/06/21 08:[address] 250 Mg Tabec PO 250 mg TID YOLANDA Administration Heparin Sodium (Porcine) 500 units 08/06/21 09:25 Heparin Sodium 1,000 Units/Ml Vial IV PUSH 08/06/21 10:26 Q1H YOLANDA Albumin Human 50 mls @ 999 mls/hr 08/06/21 09:24 Albutein IVPB 08/07/21 09:23 Q10M PRN HYPOTENSION Sodium Chloride 1,000 mls @ 999 mls/hr 08/06/21 09:24 Normal Saline Iv IV CONT 08/06/21 10:24 .Q1H1M ONE Lidocaine/Prilocaine 1 each 08/05/21 12:35 08/05/21 16:16 Lidocaine/Prilocaine Cream 2.5-2.5% Tube TOPICAL Not Given [facility] Miscellaneous Information 1 each 08/05/21 00:01 Jackie-Ml And Triphrocaps Are Duplications. Please Clarify Does Patient Take Both As We S XX 09/04/21 00:00 CLARIFY [facility] Simvastatin 40 mg 08/05/21 21:00 08/05/21 21:12 Simvastatin 20 Mg Tablet PO 40 mg HS [facility] Administration Vitamin B Complex/Folic Acid 1 cap 08/06/21 09:00 08/06/21 08:39 Vitamin B Cmplx/Vit C/Folic Ac 1 Capsule PO 09/05/21 08:59 1 cap DAILY [facility] Administration Vitamin B Complex/Folic Acid 1 cap 08/06/21 09:00 Vitamin B Cmplx/Vit C/Folic Ac 1 Capsule PO DAILY [facility] Labs Labs: Laboratory Results - last 24 hr 08/05/21 08/05/21 08/05/21 09:55 10:50 10:50 Sodium Potassium Chloride Carbon Dioxide Anion Gap BUN Creatinine Estim Creat Clear Calc Estimat
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
[2021-08-06 13:16] LABS: HIV 1/2 Ab P24 Ag Result Negative (Negative)
[2021-08-06 13:43] LABS: Folic Acid > 20.0 ng/mL (2.76->20)
[2021-08-06 13:49] LABS: Hepatitis B Surface Antigen Negative (Negative)
[2021-08-06 13:55] LABS: HAV RESULT Negative (Negative); Hepatitis B Core IgM Result Negative (Negative)
[2021-08-06 14:07] LABS: Hepatitis C Virus Antibody Negative (Negative)
[2021-08-06 14:33] VITALS: BP 137/79; PULSE 105; RESP 18; TEMP 36.3; O2SAT 100
[2021-08-06 17:16] VITALS: O2SAT 98
--- NOTE | 2021-08-06 18:06 | WPDCNPSYCH ---
[facility] Data of Consult Date/Time: 08/06/21 18:06 Requesting Physician: Maria D Tsai PA-C Primary Care Provider: Yanci Singletary, Consult Narrative Narrative: Diagnoses: Unspecified schizophrenia Unspecified depressive disorder Marijuana use disorder Pharmacologic noncompliance Outpatient hemodialysis noncompliance Discussion: The patient has apparently a long history of bipolar disorder. She was found outside her supported living arrangement naked. Although her speech is disorganized, her speech is normal in rate and volume. Her speech is not at all pressured. She has no evidence of being sexually preoccupied other than being outside naked once. She has no evidence of being preoccupied with oriental orthodox. Her nurse practitioner reported that she made a statement that she is getting grossly for a bodyguard who a teacher how to defend herself. Although this is some mild evidence of grandiosity, grandiosity does not seem to be a prominent element in her clinical presentation. Also, the timeline of her symptoms are not documented. Her activity level is actually quite low. She is not irritable at interview. Although she reports poor sleep, she also reports that she is quite tired. In manic sleep disturbance patients or able to have little sleep but feel fully restored. The patient reports that she is on hemodialysis due to lithium toxicity. The patient has been pharmacologically noncompliant to both Depakote and Wellbutrin. The use of these medications would be suggestive of bipolar disorder. However, at time of interview not enough criteria diagnostic of pratibha are discernible. Certainly bipolar disorder needs to be in the differential diagnosis. Patient does have delusions. In addition to the nurse practitioner's report that the patient is getting Massimo Ban for a body guard in will teach her how to defend herself, she told me that she is and has a delusion of being . As mentioned above her speech is disorganized. The presence of delusion and disorganized speech are consistent with schizophrenia. However, once again the timeline for her psychosis is not well documented. The patient has been pharmacologically noncompliant to her Depakote and Wellbutrin. These medicines are being resumed. Her Depakote level will be checked on Monday. Wellbutrin will be continued because the patient does report depressed mood sometimes, she reports she has feelings of worthlessness and anhedonia. She had frequent crying episodes. Her concentration is also poor. These findings are more consistent with a depressive syndrome of some sort. However the patient has been noncompliant with 1 of her hemodialysis appointments. She also scores a 14/27 on mini-mental status testing which is consistent with dementia and or delirium. Her BUN on admission was 52 with a creatinine of 7 that has corrected to a BUN of 26 and creatinine of 4.9. She may have had a uremic delirium. She may also have a dementing illness. And she may even have a dementia with a superimposed delirium from uremia secondary to Hemodialysis noncompliance. Plan: Depakote 250 mg p.o. t.i.d. will be resumed as a mood stabilizer. In the hospital she is getting her medication in an enforced way. We will check a Depakote level on Monday. Wellbutrin XL 150 mg p.o. q.a.m. will be resumed. The patient has frequent crying spells and has several symptoms of a depressive syndrome. Care coordination will help with discharge placement optimization. The patient is likely to require a more structured and more restrictive living circumstance to help keep her safe for than what she has been recently. Hopefully such structure will include enforced administration of medication as well as hemodialysis. Care coordination might also consider outpatient follow-up with the Division of guardianship in [place]. The patient needs a surrogate decision maker authority documentation. Serial mini-menta
[2021-08-06 20:12] VITALS: BP 134/72; PULSE 96; RESP 18; TEMP 36.5; O2SAT 98
[2021-08-06] MEDS: SIMVASTATIN 20 MG TABLET 40 MG PO (20:35)
[2021-08-06] MEDS: QUEtiapine FUMARATE 100 MG TABLET PO (20:35)
[2021-08-07] VITALS (19 sets, daily range): BP systolic 95–138; BP diastolic 51–84; PULSE 102–148; RESP 16–18; TEMP 36–36.7; O2SAT 97–100
[2021-08-07 05:04] LABS: Hematocrit 37.9 % (37.0-47.0); Hemoglobin 12.9 g/dL (12.0-15.0); Mean Corpuscular Hemoglobin 32.5 pg (26-34); Mean Corpuscular Volume 95.5 fl (80-100); Platelet Count Result 210 k/mm3 (150-375); Red Blood Count 3.97 M/mm3 (4.2-5.4); Red Cell Distribution Width 14.2 % (11.5-14.5); White Blood Count 7.5 K/mm3 (4.5-10.0)
[2021-08-07 05:19] LABS: Alanine Aminotransferase 14 U/L (4-35); Albumin Level 4.5 g/dL (3.5-5.1); Alkaline Phosphatase 90 U/L (38-126); Anion Gap 12 mmol/L (8-16); Aspartate Amino Transferase 44 U/L (14-36); Bilirubin,Total 0.4 mg/dL (0.2-1.3); Blood Urea Nitrogen 36 mg/dL (7-17); Calcium 9.4 mg/dL (8.4-10.2); Carbon Dioxide 31 mmol/L (22-30); Chloride 95 mmol/L (98-107); Estimated CRCL calculation 7 ml/min; Estimated Glomerular Filt Rate 6; Glucose 94 mg/dL (65-110); Phosphorus 4.2 mg/dL (2.5-4.5); Potassium 4.3 mmol/L (3.4-5.0); Sodium 138 mmol/L (137-145)
[2021-08-07] MEDS: SODIUM CHLORIDE 0.9% IV 1,000 ML 999 ML IV CONT (07:30)
[2021-08-07] MEDS: VITAMIN B CMPLX/VIT C/FOLIC AC 1 CAPSULE 1 CAP PO (08:03)
[2021-08-07] MEDS: buPROPion HCL XL (24 HR) 150 MG TABCR PO (08:03)
[2021-08-07] MEDS: DIVALPROEX SODIUM DR 250 MG TABEC PO ×3 (08:03→16:56)
[2021-08-07] MEDS: LIDOCAINE/PRILOCAINE CREAM 2.5-2.5% TUBE 1 EACH TOPICAL (08:03)
[2021-08-07] MEDS: CALCIUM ACETATE 667 MG TABLET PO ×3 (08:03→16:55)
[2021-08-07] MEDS: HEPARIN SODIUM 1,000 UNITS/ML VIAL 1000 UNITS IV PUSH (08:40)
[2021-08-07] MEDS: HEPARIN SODIUM 1,000 UNITS/ML VIAL 500 UNITS IV PUSH ×2 (08:45)
--- NOTE | 2021-08-07 10:30 | PM.IMPN ---
Progress Note: A&P Assessment and Plan (1) Acute metabolic encephalopathy: Code(s): G93.41 - Metabolic encephalopathy Status: Acute Assessment and Plan: -on admission was felt to be secondary to her manic episode, however after speaking w/ psychiatrist he believes it is more of a medial induced delirium -no signs of acute infection, no leukocytosis or fever -UA w/ 1+ ketones and protein but no nitrites, leukocytes, or WBCs -vit B12 >1000, folate >20 -TSH WNL -hepatitis panel negative -HIV negative -CT head no acute findings -RPR screen pending -vitals are stable -She remains A/Ox4 with disorganized speech and hallucinations vs delusions? -After speaking with psychiatry, suspect she may have had possible uremic delirium on admission but does likely have some degree of psychiatric illness whether that be dementia vs schizophrenia. Overall her mentation has improved significantly after receiving dialysis. (2) Psychosis: Qualifiers: Psychosis type: unspecified psychosis type Qualified Code(s): F29 - Unspecified psychosis not due to a substance or known physiological condition Code(s): F29 - Unspecified psychosis not due to a substance or known physiological condition Status: Acute Assessment and Plan: -Patient self reports that she has been having a manic episode due to going off of her medications. -Per chart review she is supposed to be on Wellbutrin and Depakote however her Depakote level was undetectable. -She has been seen by crisis and they do not feel that she does not qualify for inpatient treatment. -The patient herself denies suicidal and homicidal ideations. -She is willing to start back on her medications. Confirmed with pharmacy that patient picked up her Wellbutrin and Depakote prescribed by Mansi Rogers NP on 07/14/21 -spoke w/ psychiatrist Dr. Johnson at length who evaluated the patient yesterday. Please see his note for further details. He suspects possible dementia vs delirium. Also notes that some features of her behavior are consistent with schizophrenia. -Per psychiatry: continue Depakote, recheck level on Monday. Continue Wellbutrin. Care coordination to look into discharge planning as she is likely to require a more structured and more restrictive living circumstance to help keep her safe. At this point she lives alone in an apartment complex for the disabled. Her mother lives in a separate apartment in the same complex but is in her 80s and has stated she does not have the ability to care for her. Dr. Johnson also recommends that care coordination consider follow up with the division of adult guardianship. -very much appreciate psychiatric consultation (3) End-stage renal disease on hemodialysis: Code(s): N18.6 - End stage renal disease; Z99.2 - Dependence on renal dialysis Status: Acute Assessment and Plan: -Patient had hemodialysis 08/05/21, getting it again today 08/07/21 -labs stable -director of physiotherapy services is Jasen Armendariz MD -being seen by our nephrology team with hospitalized (4) Chronic anemia: Code(s): D64.9 - Anemia, unspecified Status: Acute Assessment and Plan: -Hemoglobin and hematocrit are stable on review of previous labs. (5) Bipolar disorder: Code(s): F31.9 - Bipolar disorder, unspecified Status: Acute Assessment and Plan: -Patient has been off of her medications but is willing to restart her valproic acid as above. (6) Depression with anxiety: Code(s): F41.8 - Other specified anxiety disorders Status: Acute Assessment and Plan: -No suicidal or homicidal ideation. -see detailed plan above Subjective Date/time seen: 08/07/21 10:30 Interval history: 61-year-old with end-stage renal disease on hemodialysis, chronic anemia, and bipolar disorder, admitted for psychiatric evaluation and ESRD. Pt is A/Ox4 today but still has disorganized sp
--- NOTE | 2021-08-07 11:10 | PM.PNNEP ---
Progress Note: A&P Assessment and Plan (1) End stage renal disease: Code(s): N18.6 - End stage renal disease Status: Chronic Assessment and Plan: HD today and continue T/T/S outpatient schedule follow electrolytes, volume status, and clearance (2) Altered mental status: Code(s): R41.82 - Altered mental status, unspecified Status: Acute Assessment and Plan: extensive work-up and evaluation noted partly related to #3 versus dementia versus delirium or possibley a combination of all mentation seems better in general (3) Psychosis: Qualifiers: Psychosis type: unspecified psychosis type Qualified Code(s): F29 - Unspecified psychosis not due to a substance or known physiological condition Code(s): F29 - Unspecified psychosis not due to a substance or known physiological condition Status: Acute Assessment and Plan: Psychiatry recommendations noted continue supportive therapy (4) Hypertension: Code(s): I10 - Essential (primary) hypertension Status: Chronic Assessment and Plan: reasonable control at this time follow trend of hemodynamics (5) Chronic anemia: Code(s): D64.9 - Anemia, unspecified Status: Chronic Assessment and Plan: presumably related to her ESRD H/H actually supratherapeutic at this time holding Epogen Will continue to follow. Subjective Date/time seen: 08/07/21 11:10 Tolerating dialysis at the time of my visit (seen on HD at ~ 10:50AM) but having some issues with nausea (floor nurse to be giving antiemetics soon); mentation seems better per report (this is my first time seeing her); no apparent distress noted; no issues/events overnight or earlier this AM. Exam Narrative: General: WD/WN female in NAD Heart: normal S1 and S2; no rub Lungs: clear to auscultation Abdomen: soft, nontender, nondistended, positive bowel sounds Extremities: no cyanosis or clubbing; no edema Skin: warm and dry Objective Data Vital Signs Vital Signs: Vital Signs Temp Pulse Resp BP Pulse Ox 08/07/21 11:00 148 H 117/84 08/07/21 10:45 132 H 119/51 L 08/07/21 10:30 133 H 111/78 08/07/21 10:15 118 H 113/80 08/07/21 10:00 117 H 113/77 08/07/21 09:45 114 H 122/76 08/07/21 09:30 111 H 121/83 08/07/21 09:15 120 H 124/82 08/07/21 09:00 102 H 132/79 08/07/21 08:47 102 H 132/79 08/07/21 08:35 36.7 C 103 H 16 138/82 08/07/21 06:00 36.4 C 108 H 17 133/82 100 08/06/21 20:12 36.5 C 96 18 134/72 98 08/06/21 17:16 98 08/06/21 14:33 36.3 C L 105 H 18 137/79 100 Intake/Output Intake/Output: Intake & Output 08/04/21 08/05/21 08/06/21 08/07/21 23:59 23:59 23:59 23:59 Intake Total 490 1080 740 Output Total 230 0 600 Balance -414 086 7568 140 Meds/Results Medications: Active Medications Generic Name Dose Route Start Last Admin Trade Name Freq PRN Reason Stop Dose Admin Bupropion HCl 150 mg 08/06/21 09:00 08/07/21 08:03 Bupropion Hcl Xl (24 Hr) 150 Mg Tabcr PO 150 mg DAILY YOLANDA Administration Calcium Acetate 667 mg 08/06/21 08:00 08/07/21 08:03 Calcium Acetate 667 Mg Tablet PO 667 mg TIDWM YOLANDA Administration Divalproex Sodium 250 mg 08/06/21 09:00 08/07/21 08:[address] 250 Mg Tabec PO 250 mg TID YOLANDA Administration Lidocaine/Prilocaine 1 each 08/05/21 12:35 08/07/21 08:03 Lidocaine/Prilocaine Cream 2.5-2.5% Tube TOPICAL 1 each TUTHSA YOLANDA Administration Ondansetron HCl 4 mg 08/07/21 10:48 Ondansetron Inj 4 Mg/2 Ml Vial IV PUSH Q4H PRN Nausea And Vomiting Quetiapine Fumarate 100 mg 08/06/21 21:00 08/06/21 20:35 Quetiapine Fumarate 100 Mg Tablet PO 100 mg HS YOLANDA Administration Simvastatin 40 mg 08/05/21 21:00 08/06/21 20:35 Simvastatin 20 Mg Tablet PO 40 mg HS YOLANDA Administration Vitamin B Complex/F
[2021-08-07] MEDS: ONDANSETRON INJ 4 MG/2 ML VIAL IV PUSH (11:17)
[2021-08-07] MEDS: QUEtiapine FUMARATE 100 MG TABLET PO (21:08)
[2021-08-07] MEDS: SIMVASTATIN 20 MG TABLET 40 MG PO (21:08)
[2021-08-07] MEDS: LORazepam INJ (*CRX) 2 MG/ML VIAL 1 MG IM (22:07)
[2021-08-07] MEDS: HALOPERIDOL LACTATE 5 MG/ML VIAL IM (22:07)
--- NOTE | 2021-08-07 22:14 | PC.NURSE ---
At 2200 called a code purple on patient. She became belligerent and attempting to hit staff. She is doubling up her fists and swinging. She is yelling saying she is leaving this place. Unable to redirect patient. She is unsteady on her feet. Notified Dr. Hoyt new orders received.
[2021-08-08 03:57] VITALS: BP 96/52; PULSE 84; RESP 16; TEMP 36.4; O2SAT 99
[2021-08-08 04:58] LABS: Basophils Absolute Auto 0.1 K/mm3 (0.0-0.1); Basophils Percent Auto 1.4 % (0.2-1.2); Eosinophils Absolute Auto 0.3 K/mm3 (0-0.3); Eosinophils Percent Auto 4.1 % (0-4.4); Hematocrit 38.8 % (37.0-47.0); Hemoglobin 12.7 g/dL (12.0-15.0); Immature Granulocyte Absolute 0.05 K/mm3 (0.00-0.031); Immature Granulocyte Percent A 0.7 % (0-0.5); Lymphocytes Absolute Auto 2.01 K/mm3 (0.9-3.2); Lymphocytes Percent Auto 27.5 % (18.3-44.2); Mean Corpuscular HGB Conc 32.7 g/dl (32-36); Mean Corpuscular Hemoglobin 31.7 pg (26-34); Mean Corpuscular Volume 96.8 fl (80-100); Mean Platelet Volume 10.3 fl (7.4-10.4); Monocytes Percent Auto 13.9 % (2.6-8.5); Neutrophils Absolute Auto 3.8 K/mm3 (1.3-6.7); Neutrophils Percent Auto 52.4 % (45.5-73.1); Platelet Count Result 178 k/mm3 (150-375); Red Blood Count 4.01 M/mm3 (4.2-5.4); Red Cell Distribution Width 14.6 % (11.5-14.5); White Blood Count 7.3 K/mm3 (4.5-10.0)
[2021-08-08 05:18] LABS: Anion Gap 12 mmol/L (8-16); Blood Urea Nitrogen 27 mg/dL (7-17); Calcium 9.4 mg/dL (8.4-10.2); Carbon Dioxide 22 mmol/L (22-30); Chloride 103 mmol/L (98-107); Estimated CRCL calculation 8 ml/min; Estimated Glomerular Filt Rate 8; Glucose 105 mg/dL (65-110); Sodium 137 mmol/L (137-145)
[2021-08-08] MEDS: CALCIUM ACETATE 667 MG TABLET PO ×3 (07:32→16:19)
[2021-08-08] MEDS: buPROPion HCL XL (24 HR) 150 MG TABCR PO (08:10)
[2021-08-08] MEDS: DIVALPROEX SODIUM DR 250 MG TABEC PO ×3 (08:10→16:19)
[2021-08-08] MEDS: VITAMIN B CMPLX/VIT C/FOLIC AC 1 CAPSULE 1 CAP PO (08:10)
--- NOTE | 2021-08-08 08:13 | PM.IMPN ---
Progress Note: A&P Assessment and Plan (1) Acute metabolic encephalopathy: Code(s): G93.41 - Metabolic encephalopathy Status: Acute Assessment and Plan: -on admission was felt to be secondary to her manic episode, however after speaking w/ psychiatrist he believes it is more of a medial induced delirium -no signs of acute infection, no leukocytosis or fever -UA w/ 1+ ketones and protein but no nitrites, leukocytes, or WBCs -vit B12 >1000, folate >20 -TSH WNL -hepatitis panel negative -HIV negative -CT head no acute findings -RPR screen pending -vitals are stable -She remains A/Ox4 with disorganized speech and hallucinations and delusions -her dialysis sessions are going well and no s/s of uremia or metabolic cause for her delirium. -she was not taking her psych medications prior to admission. -recommend another psychiatrist follow up visit to benefit her improvement. - had a CODE PURPLE overnight last night, threatening staff last evening, and required Haldol. - While she is not suicidal or homicidal at this current time, she is not safe for independent care and/or discharge. -despite being on the medications that the psychiatrist recommended and valproic acid level ordered for tomorrow morning, she continues to be very argumentative and agitated and confused. -needs further psychiatric evaluation and monitoring. -unsafe to discharge back to independent living: enormous self-care deficit (noted injuries/bruising/abrasions, significant weight loss, -now medically clear and would benefit from involuntary commitment by Psychologist/Psychiatrist to continue her therapy sessions and titrate her Psych meds. (2) Psychosis: Qualifiers: Psychosis type: unspecified psychosis type Qualified Code(s): F29 - Unspecified psychosis not due to a substance or known physiological condition Code(s): F29 - Unspecified psychosis not due to a substance or known physiological condition Status: Acute Assessment and Plan: -Patient self reports that she has been having a manic episode due to going off of her medications. -Per chart review she is supposed to be on Wellbutrin and Depakote however her Depakote level was undetectable. -recommend crisis revisit patient at this time. -The patient herself denies suicidal and homicidal ideations - yet was threatening staff last night - CODE purple called. -started back on her medications. Confirmed with pharmacy that patient picked up her Wellbutrin and Depakote prescribed by Mansi Rogers NP on 07/14/21 - psychiatrist Dr. Johnson at length who evaluated the patient on 08/06. -Depakote 250 mg p.o. t.i.d. will be resumed as a mood stabilizer. -Wellbutrin XL 150 mg p.o. q.a.m. will be resumed. -will check a Depakote level on Monday. -some features of her behavior are consistent with schizophrenia. (today disorganized thoughts, rapid speech, dismissive/ irritated/annoyed mood) -mother is very worried about patient safety with her possibly going back to independent living in her apartment. -Care coordination to look into needing adult guardianship - recommended by psychiatrist Dr. Johnson and the patient's mother. - now medically clear and would benefit from involuntary commitment by Psychologist/Psychiatrist to continue her therapy sessions and titrate her Psych meds. (3) End-stage renal disease on hemodialysis: Code(s): N18.6 - End stage renal disease; Z99.2 - Dependence on renal dialysis Status: Acute Assessment and Plan: -Patient had hemodialysis 08/05/21, getting it again today 08/07/21 -labs stable, RPR and Vitamin D3 level is pending. -ferryboat operator helper is Jasen Armendariz MD -being seen by our nephrology team with hospitalized (4) Chronic anemia: Code(s): D64.9 - Anemia, unspecified Status: Chronic Assessment and Plan: -Hemoglobin and hematocrit are stable on review of previous labs. Today H/H 12.7/38.8 presumably related to her ESRD Today
[2021-08-08 10:47] LABS: Rapid Plasma Reagin Non-Reactive (NonReactive)
--- NOTE | 2021-08-08 11:02 | PM.PNNEP ---
Progress Note: A&P Assessment and Plan (1) End stage renal disease: Code(s): N18.6 - End stage renal disease Status: Chronic Assessment and Plan: HD yesterday and continue T/T/S outpatient schedule follow electrolytes, volume status, and clearance (2) Altered mental status: Code(s): R41.82 - Altered mental status, unspecified Status: Acute Assessment and Plan: extensive work-up and evaluation noted partly related to #3 versus dementia versus delirium or possibly a combination of all(?) mentation seems better in general (3) Psychosis: Qualifiers: Psychosis type: unspecified psychosis type Qualified Code(s): F29 - Unspecified psychosis not due to a substance or known physiological condition Code(s): F29 - Unspecified psychosis not due to a substance or known physiological condition Status: Acute Assessment and Plan: Psychiatry recommendations noted behavior noted overnight and this AM -- suspect further treatment/intervention will be needed continue supportive therapy (4) Hypertension: Code(s): I10 - Essential (primary) hypertension Status: Chronic Assessment and Plan: reasonable control at this time follow trend of hemodynamics (5) Chronic anemia: Code(s): D64.9 - Anemia, unspecified Status: Chronic Assessment and Plan: presumably related to her ESRD H/H actually supratherapeutic at this time holding Epogen Will continue to follow. Subjective Date/time seen: 08/08/21 11:02 Tolerated dialysis treatment yesterday with the only complaint being nauseated although her treatment ended about 20 minutes earlier due to clotting; events noted overnight (she threatening and quite belligerent with multiple staff members); quite argumentive this AM as well. Exam Narrative: General: WD/WN female in NAD Heart: normal S1 and S2; no rub Lungs: clear to auscultation Abdomen: soft, nontender, nondistended, positive bowel sounds Extremities: no cyanosis or clubbing; no edema Skin: warm and intact Objective Data Vital Signs Vital Signs: Vital Signs Temp Pulse Resp BP Pulse Ox 08/08/21 03:57 36.4 C L 84 16 96/52 L 99 08/07/21 19:54 36.4 C 114 H 18 132/82 99 08/07/21 13:10 36.4 C L 120 H 16 114/82 97 08/07/21 11:55 36.7 C 16 08/07/21 11:50 36.4 C 138 H 16 125/83 08/07/21 11:35 142 H 95/72 L 08/07/21 11:30 142 H 95/72 L 08/07/21 11:15 148 H 107/61 Intake/Output Intake/Output: Intake & Output 08/05/21 08/06/21 08/07/21 08/08/21 23:59 23:59 23:59 23:59 Intake Total 490 1080 1490 340 Output Total 0 2983 Balance 490 1080 -1493 340 Meds/Results Medications: Active Medications Generic Name Dose Route Start Last Admin Trade Name Freq PRN Reason Stop Dose Admin Bupropion HCl 150 mg 08/06/21 09:00 08/08/21 08:10 Bupropion Hcl Xl (24 Hr) 150 Mg Tabcr PO 150 mg DAILY YOLANDA Administration Calcium Acetate 667 mg 08/06/21 08:00 08/08/21 07:32 Calcium Acetate 667 Mg Tablet PO 667 mg TIDWM YOLANDA Administration Divalproex Sodium 250 mg 08/06/21 09:00 08/08/21 08:[address] 250 Mg Tabec PO 250 mg TID YOLANDA Administration Lidocaine/Prilocaine 1 each 08/05/21 12:35 08/07/21 08:03 Lidocaine/Prilocaine Cream 2.5-2.5% Tube TOPICAL 1 each TUTHSA YOLANDA Administration Ondansetron HCl 4 mg 08/07/21 10:48 08/07/21 11:17 Ondansetron Inj 4 Mg/2 Ml Vial IV PUSH 4 mg Q4H PRN Administration Nausea And Vomiting Quetiapine Fumarate 100 mg 08/06/21 21:00 08/07/21 21:08 Quetiapine Fumarate 100 Mg Tablet PO 100 mg HS YOLANDA Administration Simvastatin 40 mg 08/05/21 21:00 08/07/21 21:08 Simvastatin 20 Mg Tablet PO 40 mg HS YOLANDA Administration Vitamin B Complex/Folic Acid 1 cap 08/06/21 09:00 08/08/21 08:10 Vitamin B Cmplx/Vit C/Folic Ac 1 Capsule PO 1 cap MARCIE
[2021-08-08 15:35] VITALS: BP 102/79; PULSE 101; RESP 16; TEMP 36.1; O2SAT 100
[2021-08-08] MEDS: QUEtiapine FUMARATE 100 MG TABLET PO (20:10)
[2021-08-08] MEDS: SIMVASTATIN 20 MG TABLET 40 MG PO (20:10)
[2021-08-08 21:14] VITALS: BP 109/68; PULSE 54; RESP 22; TEMP 36.3; O2SAT 98
[2021-08-09 05:15] VITALS: BP 119/81; PULSE 101; RESP 22; TEMP 36.4; O2SAT 100
[2021-08-09 07:13] LABS: Alanine Aminotransferase 21 U/L (4-35); Albumin Level 4.6 g/dL (3.5-5.1); Alkaline Phosphatase 84 U/L (38-126); Anion Gap 11 mmol/L (8-16); Aspartate Amino Transferase 35 U/L (14-36); Bilirubin,Total 0.5 mg/dL (0.2-1.3); Blood Urea Nitrogen 46 mg/dL (7-17); Calcium 9.3 mg/dL (8.4-10.2); Carbon Dioxide 24 mmol/L (22-30); Chloride 96 mmol/L (98-107); Estimated CRCL calculation 6 ml/min; Estimated Glomerular Filt Rate 6; Glucose 88 mg/dL (65-110); Sodium 131 mmol/L (137-145)
[2021-08-09 07:28] LABS: Basophils Absolute Auto 0.1 K/mm3 (0.0-0.1); Basophils Percent Auto 1.4 % (0.2-1.2); Eosinophils Absolute Auto 0.4 K/mm3 (0-0.3); Eosinophils Percent Auto 4.5 % (0-4.4); Hematocrit 36.7 % (37.0-47.0); Hemoglobin 12.4 g/dL (12.0-15.0); Immature Granulocyte Absolute 0.04 K/mm3 (0.00-0.031); Immature Granulocyte Percent A 0.5 % (0-0.5); Lymphocytes Absolute Auto 2.73 K/mm3 (0.9-3.2); Lymphocytes Percent Auto 30.8 % (18.3-44.2); Mean Corpuscular HGB Conc 33.8 g/dl (32-36); Mean Corpuscular Volume 94.8 fl (80-100); Mean Platelet Volume 10.3 fl (7.4-10.4); Monocytes Absolute Auto 1.1 K/mm3 (0.1-0.6); Monocytes Percent Auto 12.3 % (2.6-8.5); Neutrophils Absolute Auto 4.5 K/mm3 (1.3-6.7); Neutrophils Percent Auto 50.5 % (45.5-73.1); Platelet Count Result 205 k/mm3 (150-375); Red Blood Count 3.87 M/mm3 (4.2-5.4); Red Cell Distribution Width 14.4 % (11.5-14.5); White Blood Count 8.9 K/mm3 (4.5-10.0)
[2021-08-09 08:00] VITALS: PULSE 101; RESP 22; O2SAT 100
[2021-08-09] MEDS: buPROPion HCL XL (24 HR) 150 MG TABCR PO (09:29)
[2021-08-09] MEDS: DIVALPROEX SODIUM DR 250 MG TABEC PO ×3 (09:29→16:32)
[2021-08-09] MEDS: CALCIUM ACETATE 667 MG TABLET PO ×3 (09:29→16:32)
[2021-08-09] MEDS: VITAMIN B CMPLX/VIT C/FOLIC AC 1 CAPSULE 1 CAP PO (09:29)
[2021-08-09 11:25] LABS: Glucose Point of Care 99 mg/dl (65-105)
[2021-08-09 12:23] LABS: EDCOVIDSCREEN Negative (Negative)
--- NOTE | 2021-08-09 12:37 | PM.PNNEP ---
Progress Note: A&P Assessment and Plan (1) End stage renal disease: Code(s): N18.6 - End stage renal disease Status: Chronic Assessment and Plan: HD tomorrowand continue T/T/S outpatient schedule follow electrolytes, volume status, and clearance (2) Altered mental status: Code(s): R41.82 - Altered mental status, unspecified Status: Acute Assessment and Plan: extensive work-up and evaluation noted partly related to #3 versus dementia versus delirium or possibly a combination of all(?) mentation seems better in general (3) Psychosis: Qualifiers: Psychosis type: unspecified psychosis type Qualified Code(s): F29 - Unspecified psychosis not due to a substance or known physiological condition Code(s): F29 - Unspecified psychosis not due to a substance or known physiological condition Status: Acute Assessment and Plan: Psychiatry recommendations noted continue supportive therapy (4) Hypertension: Code(s): I10 - Essential (primary) hypertension Status: Chronic Assessment and Plan: reasonable control at this time follow trend of hemodynamics (5) Chronic anemia: Code(s): D64.9 - Anemia, unspecified Status: Chronic Assessment and Plan: presumably related to her ESRD H/H actually supratherapeutic at this time holding Epogen Will continue to follow. Subjective Date/time seen: 08/09/21 12:37 No new issues or problems voiced at the time of my visit; no apparent distress noted; no issues/events overnight or earlier this AM. Exam Narrative: General: WD/WN female in NAD Heart: normal S1 and S2; no rub Lungs: clear to auscultation Abdomen: soft, nontender, nondistended, positive bowel sounds Extremities: no cyanosis or clubbing; no edema Skin: no rash Objective Data Vital Signs Vital Signs: Vital Signs Temp Pulse Resp BP Pulse Ox 08/09/21 08:00 101 H 22 H 100 08/09/21 05:15 36.4 C L 101 H 22 H 119/81 100 08/08/21 21:14 36.3 C L 54 L 22 H 109/68 98 08/08/21 15:35 36.1 C L 101 H 16 102/79 100 Intake/Output Intake/Output: Intake & Output 08/06/21 08/07/21 08/08/21 08/09/21 23:59 23:59 23:59 23:59 Intake Total 1080 1490 900 720 Output Total 0 2983 300 Balance 1080 -6046 900 420 Meds/Results Medications: Active Medications Generic Name Dose Route Start Last Admin Trade Name Mary PRN Reason Stop Dose Admin Bupropion HCl 150 mg 08/06/21 09:00 08/09/21 09:29 Bupropion Hcl Xl (24 Hr) 150 Mg Tabcr PO 150 mg DAILY YOLANDA Administration Calcium Acetate 667 mg 08/06/21 08:00 08/09/21 09:29 Calcium Acetate 667 Mg Tablet PO 667 mg TIDWM YOLANDA Administration Divalproex Sodium 250 mg 08/06/21 09:00 08/09/21 09:[address] 250 Mg Tabec PO 250 mg TID YOLANDA Administration Lidocaine/Prilocaine 1 each 08/05/21 12:35 08/07/21 08:03 Lidocaine/Prilocaine Cream 2.5-2.5% Tube TOPICAL 1 each TUTHSA YOLANDA Administration Ondansetron HCl 4 mg 08/07/21 10:48 08/07/21 11:17 Ondansetron Inj 4 Mg/2 Ml Vial IV PUSH 4 mg Q4H PRN Administration Nausea And Vomiting Polyethylene Glycol 17 gm 08/09/21 09:00 Polyethylene Glycol 3350 17 Gm Powd.Pack PO QAM REPLACED BY [facility] Quetiapine Fumarate 100 mg 08/06/21 21:00 08/08/21 20:10 Quetiapine Fumarate 100 Mg Tablet PO 100 mg HS YOLANDA Administration Simvastatin 40 mg 08/05/21 21:00 08/08/21 20:10 Simvastatin 20 Mg Tablet PO 40 mg HS YOLANDA Administration Vitamin B Complex/Folic Acid 1 cap 08/06/21 09:00 08/09/21 09:29 Vitamin B Cmplx/Vit C/Folic Ac 1 Capsule PO 1 cap DAILY YOLANDA Administration Radiology Results: ITS Impressions Head CT 08/06/21 14:04 IMPRESSION: 1. Normal brain. Labs Labs: Laboratory Tests 08/09/21 07:12 08/09/21 06:51
[2021-08-09] MEDS: ONDANSETRON INJ 4 MG/2 ML VIAL IV PUSH (12:55)
[2021-08-09] MEDS: polyethylene glycoL 3350 17 GM POWD.PACK PO (13:46)
[2021-08-09 14:00] VITALS: BP 131/81; PULSE 102; RESP 20; TEMP 36.6; O2SAT 100
--- NOTE | 2021-08-09 14:15 | PM.DS ---
DS: Admitting Diagnosis Discharge Date 08/09/21 Admitting Diagnosis Acute Encepphalopathy DS: Discharge Diagnosis Discharge Diagnosis (1) Acute metabolic encephalopathy: Code(s): G93.41 - Metabolic encephalopathy Status: Acute Assessment and Plan: -on admission was felt to be secondary to her manic episode, however after speaking w/ psychiatrist he believes it is more of a medial induced delirium -no signs of acute infection, no leukocytosis or fever -UA w/ 1+ ketones and protein but no nitrites, leukocytes, or WBCs -vit B12 >1000, folate >20 -TSH WNL -hepatitis panel negative -HIV negative -CT head no acute findings -RPR screen pending -vitals are stable -She remains A/Ox4 with disorganized speech and hallucinations and delusions -her dialysis sessions are going well and no s/s of uremia or metabolic cause for her delirium. -she was not taking her psych medications prior to admission. -recommend another psychiatrist follow up visit to benefit her improvement. - had a CODE PURPLE overnight last night, threatening staff last evening, and required Haldol. - While she is not suicidal or homicidal at this current time, she is not safe for independent care and/or discharge. -despite being on the medications that the psychiatrist recommended and valproic acid level ordered for tomorrow morning, she continues to be very argumentative and agitated and confused. -needs further psychiatric evaluation and monitoring. -unsafe to discharge back to independent living: enormous self-care deficit (noted injuries/bruising/abrasions, significant weight loss, -now medically clear and would benefit from involuntary commitment by Psychologist/Psychiatrist to continue her therapy sessions and titrate her Psych meds. (2) Psychosis: Qualifiers: Psychosis type: unspecified psychosis type Qualified Code(s): F29 - Unspecified psychosis not due to a substance or known physiological condition Code(s): F29 - Unspecified psychosis not due to a substance or known physiological condition Status: Acute Assessment and Plan: -Patient self reports that she has been having a manic episode due to going off of her medications. -Per chart review she is supposed to be on Wellbutrin and Depakote however her Depakote level was undetectable. -recommend crisis revisit patient at this time. -The patient herself denies suicidal and homicidal ideations - yet was threatening staff last night - CODE purple called. -started back on her medications. Confirmed with pharmacy that patient picked up her Wellbutrin and Depakote prescribed by Mansi Rogers NP on 07/14/21 - psychiatrist Dr. Johnson at length who evaluated the patient on 08/06. -Depakote 250 mg p.o. t.i.d. will be resumed as a mood stabilizer. -Wellbutrin XL 150 mg p.o. q.a.m. will be resumed. -will check a Depakote level on Monday. -some features of her behavior are consistent with schizophrenia. (today disorganized thoughts, rapid speech, dismissive/ irritated/annoyed mood) -mother is very worried about patient safety with her possibly going back to independent living in her apartment. -Care coordination to look into needing adult guardianship - recommended by psychiatrist Dr. Johnson and the patient's mother. - now medically clear and would benefit from involuntary commitment by Psychologist/Psychiatrist to continue her therapy sessions and titrate her Psych meds. (3) End-stage renal disease on hemodialysis: Code(s): N18.6 - End stage renal disease; Z99.2 - Dependence on renal dialysis Status: Acute Assessment and Plan: -Patient had hemodialysis 08/05/21, getting it again today 08/07/21 -labs stable, RPR and Vitamin D3 level is pending. -life assurance representative is Jasen Armendariz MD -being seen by our nephrology team with hospitalized (4) Chronic anemia: Code(s): D64.9 - Anemia, unspecified Status: Chronic Assessment and Plan: -Hemoglobin and hematocrit
== END 2021-08-09 18:24 | DRG 751 ==
LOC: ANHED 08-05 07:51 → ANH3MED 08-05 10:15 → ANH2MED 08-05 11:41
PROVIDERS: Emergency Medicine; Internal Medicine Nephrology; Nurse Practitioner; Physician Assistant; Psychiatry & Neurology Psychiatry; Admitting Provider Internal Medicine; Emergency Provider Emergency Medicine; PCP Internal Medicine; Visit Provider Internal Medicine
DX: F29 Unspecified psychosis not due to a substance or known physiological condition (principal); G93.41 Metabolic encephalopathy; F31.9 Bipolar disorder, unspecified; F41.8 Other specified anxiety disorders; G25.81 Restless legs syndrome; I12.0 Hypertensive chronic kidney disease with stage 5 chronic kidney disease or end stage renal disease; N18.6 End stage renal disease; D63.1 Anemia in chronic kidney disease; N25.0 Renal osteodystrophy; E78.5 Hyperlipidemia, unspecified; F12.90 Cannabis use, unspecified, uncomplicated; Z20.822 Contact with and (suspected) exposure to COVID-19; Z99.2 Dependence on renal dialysis; Z87.11 Personal history of peptic ulcer disease; Z87.891 Personal history of nicotine dependence; Z91.15 Patient's noncompliance with renal dialysis; Z91.14 Patient's other noncompliance with medication regimen; Z98.51 Tubal ligation status
CPT/HCPCS: 36415; 51701; 70450; 80048; 80053; 80069; 80074; 80164; 80307; 81001; 82607; 82746; 82948; 83735; 84100; 84443; 85025; 85027; 86592; 86703; 87340; 87426; 99285; A9270; C9803; G0257; G0378; G0432; J1630; J1644; J2060; J2405; J7030; U0003; U0005

== ENCOUNTER 2021-12-03 10:06 | Outpatient (CLI) | payer OTHER, SELFPAY ==
--- NOTE | ~2021-12-03 | MM_ITS ---
EXAMINATION: MM screening yair BI w jomar HISTORY: Screening TECHNIQUE: Craniocaudal and mediolateral oblique 3-D tomosynthesis images were obtained and synthetic 2-D images were generated. CAD analysis was submitted and interpreted. COMPARISON: 10/23/2014 BREAST PARENCHYMAL COMPOSITION: There are scattered areas of fibroglandular density. FINDINGS: There is no evidence of suspicious mass, calcification, or architectural distortion to sugg est malignancy in either breast. There has been no suspicious interval change. IMPRESSION: 1. No mammographic evidence of malignancy. 2. Recommend routine screening mammography in one year. BI-RADS Category 1: Negative Reviewed, dictated and finalized at location A.
== END 2021-12-03 10:07 | disposition home or self-care (01) ==
PROVIDERS: PCP Internal Medicine; Visit Provider Hospitalist
DX: Z12.31 Encounter for screening mammogram for malignant neoplasm of breast (principal)
CPT/HCPCS: 77063; 77067

== ENCOUNTER 2022-06-09 08:53 | Emergency (ER) | payer OTHER, SELFPAY ==
[2022-06-09] VITALS (21 sets, daily range): BP systolic 83–141; BP diastolic 64–121; PULSE 85–91; RESP 10–24; TEMP 36.7; O2SAT 97–99
--- NOTE | ~2022-06-09 | XR_ITS ---
EXAMINATION: XR lumbar spine 2-3V DATE: 06/09/2022 10:15 INDICATION: Low back pain radiating down the right leg. TECHNIQUE: 3 views of lumbar spine were obtained. COMPARISON: Lumbar spine radiographs 11/05/2016 FINDINGS: There is 5 mm anterolisthesis of L4 on L5. Vertebral body heights are normal. There is mild ly decreased disc height at L4-L5 and severely decreased disc height at L5-S1. There is severe facet joint osteoarthritis in lower lumbar spine. There are tubal ligation clips in the pelvis. IMPRESSION: 1. Severe lower lumbar spondylosis. Reviewed, dictated and finalized at location A. EMIOLOGIST
--- NOTE | ~2022-06-09 | XR_ITS ---
EXAMINATION: XR chest 1V DATE: 06/09/2022 10:16 INDICATION: Hypotension. End-stage renal disease. TECHNIQUE: A single frontal view of the chest was obtained. COMPARISON: Chest one view 10/27/2020, CT abdomen and pelvis 05/22/2017 FINDINGS: There is mild atelectasis at left lung base. A calcified left lung nodule and calcified lef t hilar lymph nodes are consistent with old granulomatous disease. No pleural effusion or pneumothora x. The heart size is normal. IMPRESSION: 1. Mild atelectasis at left lung base. Reviewed, dictated and finalized at location A. L POLISHER
--- NOTE | 2022-06-09 09:33 | ECG_ITS ---
Measurements Intervals [place] Rate: 85 P: 55 MT: 153 QRS: -2 QRSD: 97 T: 52 QT: 376 QTc: 447 Interpretive Statements SINUS RHYTHM NORMAL ECG COMPARED TO ECG 01/12/2021 18:34:25 NO SIGNIFICANT CHANGES Electronically Signed On 06-09-2022 13:03:59 ROOM DESIGNER by Earl Sethi D.O.
--- NOTE | 2022-06-09 09:33 | ED.RECABL ---
HPI - Recheck/Abnormal Lab/Rx General Chief Complaint: Recheck/Abnormal Lab/Rx Stated Complaint: low BP, Dialysis Time Seen by Provider: 06/09/22 09:15 Source: patient, EMS and RN notes reviewed Mode of arrival: EMS Limitations: no limitations History of Present Illness HPI narrative: This is a 62 year old female that presents to the ER for low blood pressure. Reports she has history of ESRD. Her baffle installer is Dr. Armendariz. She was at dialysis and the nurse noted her blood pressure was low so sent her in for evaluation. She has no symptoms currently, other than some low back pain which she reports is chronic for the last 20 years. Reports a sharp low back pain that radiates into the right leg. No recent injuries or trauma. She takes Gabapentin for pain. Denies fever, cough, chest pain, shortness of breath, abdominal pain, vomiting, or bowel/bladder incontinence. Related Data Home Medications Medication Instructions Recorded Confirmed bupropion HCl 150 mg 24 hr tablet, 150 mg PO DAILY 08/05/21 08/05/21 extended release calcium acetate(phosphat bind) 667 667 mg PO TIDWM 08/05/21 08/05/21 mg capsule divalproex 250 mg tablet,delayed 250 mg PO TID 08/05/21 08/05/21 release simvastatin 40 mg tablet 40 mg PO HS 08/05/21 08/05/21 vitamin B complex and vitamin C 1 cap PO DAILY 08/05/21 08/05/21 no.20-folic acid 1 mg capsule (Triphrocaps) vitamin B complex-vitamin C-folic 1 tablet PO DAILY 08/05/21 08/05/21 acid 0.8 mg tablet (Jackie-Ml) Allergies Allergy/AdvReac Type Severity Reaction Status Date / Time hydrocodone Allergy Severe RASH Verified 06/09/22 09:16 aspirin Allergy Mild Unknown Verified 06/09/22 09:16 ibuprofen Allergy Mild Unknown Verified 06/09/22 09:16 Review of Systems Review of Systems: CONSTITUTIONAL: Denies fever EYES: Denies redness, or discharge. ENT: Denies rhinorrhea, congestion CARDIOVASCULAR: Denies chest pain, or edema. RESPIRATORY: Denies cough or dyspnea. GASTROINTESTINAL: Denies abdominal pain, nausea, vomiting GENITOURINARY: Denies dysuria MUSCULOSKELETAL: Reports back pain, joint pain, and myalgia. NEUROLOGIC: Denies weakness. PSYCHIATRIC: Reports anxiety and depression. All systems reviewed & are unremarkable except as noted in HPI and below PMFSH Past Medical History Medical History (Updated 06/09/22 @ 10:45 by Rosa Malcolm PA-C) Bipolar disorder Carpal tunnel syndrome Chronic anemia Depression with anxiety End-stage renal disease on hemodialysis Secondary to lithium toxicity. Gastric ulcer History of ganglion cyst Hypertension Restless leg syndrome Surgical History Surgical History (Updated 08/05/21 @ 12:47 by Beverley Montoya PA-C) History of colonoscopy with polypectomy History of tonsillectomy History of tubal ligation Status post creation of arteriovenous fistula (03/2015) Family History Family History Other Chronic obstructive pulmonary disease Diabetes mellitus Obstructive sleep apnea Social History Social History (Updated 08/05/21 @ 22:39 by Beverley Montoya PA-C) Social History: Surrogate decision maker: Jeb Ureña, mother. Code status: Full code. Smoking status: Former smoker Alcohol intake: never Substance use: never Additional living arrangements comments: The patient lives in an apartment in [place]. Additional occupation/education comments: Disabled. Exam Narrative: GENERAL: Chronically ill-appearing, well-nourished, and in no acute distress. HEAD: Normocephalic, atraumatic. EYES: PERRLA and EOMI. ENT: Nares clear, no rhinorrhea or epistaxis. Mucous membranes moist. Oropharynx without tonsillar hypertrophy exudate or other lesions. Bilateral TMs pearly burgos non-bulging NECK: Supple. No adenopathy or masses. CHEST: Clear to auscultation. No respiratory distress. No wheezes rales or rhonchi HEART: Regular rate and rhythm. No murmur heard. Normal p
[2022-06-09 10:04] LABS: Basophils Absolute Auto 0.1 K/mm3 (0.0-0.1); Basophils Percent Auto 0.9 % (0.2-1.2); Eosinophils Absolute Auto 0.3 K/mm3 (0-0.3); Eosinophils Percent Auto 3.6 % (0-4.4); Hematocrit 36.2 % (37.0-47.0); Hemoglobin 11.3 g/dL (12.0-15.0); Immature Granulocyte Absolute 0.04 K/mm3 (0.00-0.031); Immature Granulocyte Percent A 0.6 % (0-0.5); Lymphocytes Absolute Auto 1.14 K/mm3 (0.9-3.2); Lymphocytes Percent Auto 16.5 % (18.3-44.2); Mean Corpuscular HGB Conc 31.2 g/dl (32-36); Mean Corpuscular Hemoglobin 31.5 pg (26-34); Mean Corpuscular Volume 100.8 fl (80-100); Mean Platelet Volume 10.1 fl (7.4-10.4); Monocytes Absolute Auto 0.7 K/mm3 (0.1-0.6); Neutrophils Absolute Auto 4.7 K/mm3 (1.3-6.7); Neutrophils Percent Auto 68.4 % (45.5-73.1); Platelet Count Result 173 k/mm3 (150-375); Red Blood Count 3.59 M/mm3 (4.2-5.4); White Blood Count 6.9 K/mm3 (4.5-10.0)
[2022-06-09 10:18] LABS: Potassium 4.9 mmol/L (3.4-5.0)
[2022-06-09 10:20] LABS: Alanine Aminotransferase 11 U/L (6-35); Alkaline Phosphatase 126 U/L (38-126); Anion Gap 7 mmol/L (8-16); Aspartate Amino Transferase 23 U/L (14-36); Bilirubin,Total 0.4 mg/dL (0.2-1.3); Blood Urea Nitrogen 24 mg/dL (7-17); Calcium 8.9 mg/dL (8.4-10.2); Carbon Dioxide 30 mmol/L (22-30); Chloride 100 mmol/L (98-107); Estimated CRCL calculation 10 ml/min; Estimated Glomerular Filt Rate 8; Glucose 98 mg/dL (65-110); Sodium 137 mmol/L (137-145)
[2022-06-09] MEDS: ACETAMINOPHEN 500 MG TABLET 1000 MG PO (10:46)
== END 2022-06-09 11:30 | disposition home or self-care (01) ==
PROVIDERS: Emergency Provider Physician Assistant; PCP Internal Medicine
DX: M54.41 Lumbago with sciatica, right side (principal); I12.0 Hypertensive chronic kidney disease with stage 5 chronic kidney disease or end stage renal disease; N18.6 End stage renal disease; Z99.2 Dependence on renal dialysis; D64.9 Anemia, unspecified; G25.81 Restless legs syndrome; F41.8 Other specified anxiety disorders; F31.9 Bipolar disorder, unspecified; Z87.891 Personal history of nicotine dependence; M47.816 Spondylosis without myelopathy or radiculopathy, lumbar region
CPT/HCPCS: 36415; 71045; 72100; 80053; 85025; 93005; 99284; A9270

== ENCOUNTER 2022-10-08 04:20 | Emergency (ER) | payer OTHER, SELFPAY ==
--- NOTE | ~2022-10-08 | XR_ITS ---
EXAMINATION: XR knee LT 3V DATE: 10/08/2022 05:03 INDICATION: Left knee pain. Fall. TECHNIQUE: 5 views of left knee were obtained. COMPARISON: None. FINDINGS: There is a comminuted fracture of patella in near-anatomic alignment. Joint spaces are norm al. There is a large lipohemarthrosis. IMPRESSION: 1. Comminuted fracture of patella in near-anatomic alignment. 2. Large lipohemarthrosis. Reviewed, dictated and finalized at location E.
[2022-10-08 04:21] VITALS: BP 133/82; PULSE 88; RESP 18; TEMP 36.2; O2SAT 98
--- NOTE | 2022-10-08 04:38 | PC.NURSE ---
Pt has history of chronic knee pain, pt states is worse after her fall today. No obvious deformity noted. ROM intact along with PMS.
--- NOTE | 2022-10-08 04:40 | ED.GENADULT ---
HPI - General Adult General Chief complaint: Fall Stated complaint: LEFT KNEE PAIN S/P GLF Time Seen by Provider: 10/08/22 04:30 History of Present Illness HPI narrative: Patient is a 62-year-old female who presents the emergency department with chief complaint of left knee pain. Patient reports that she is end-stage renal disease and on dialysis and is scheduled for dialysis today the patient reports that she tripped and fell and landed on her left knee and reports pain in the left knee. The patient reports there is pain with movement and improved with rest. Related Data Home Medications Medication Instructions Recorded Confirmed bupropion HCl 150 mg 24 hr tablet, 150 mg PO DAILY 08/05/21 08/05/21 extended release calcium acetate(phosphat bind) 667 667 mg PO TIDWM 08/05/21 08/05/21 mg capsule divalproex 250 mg tablet,delayed 250 mg PO TID 08/05/21 08/05/21 release simvastatin 40 mg tablet 40 mg PO HS 08/05/21 08/05/21 vitamin B complex and vitamin C 1 cap PO DAILY 08/05/21 08/05/21 no.20-folic acid 1 mg capsule (Triphrocaps) vitamin B complex-vitamin C-folic 1 tablet PO DAILY 08/05/21 08/05/21 acid 0.8 mg tablet (Jackie-Ml) Allergies Allergy/AdvReac Type Severity Reaction Status Date / Time hydrocodone Allergy Severe RASH Verified 10/08/22 04:30 aspirin Allergy Mild Unknown Verified 10/08/22 04:30 ibuprofen Allergy Mild Unknown Verified 10/08/22 04:30 Review of Systems Review of Systems: A 10 system review of systems was completed on the patient and is negative except for what is stated in the HPI. Nursing and ancillary documentation was reviewed. [facility] Past Medical History Medical History Bipolar disorder Carpal tunnel syndrome Chronic anemia Depression with anxiety End-stage renal disease on hemodialysis Secondary to lithium toxicity. Gastric ulcer History of ganglion cyst Hypertension Restless leg syndrome Surgical History Surgical History History of colonoscopy with polypectomy History of tonsillectomy History of tubal ligation Status post creation of arteriovenous fistula (03/2015) Family History Family History Other Chronic obstructive pulmonary disease Diabetes mellitus Obstructive sleep apnea Social History Social History Social History: Surrogate decision maker: Jeb Ureña, mother. Code status: Full code. Smoking status: Former smoker Alcohol intake: never Substance use: never Additional living arrangements comments: The patient lives in an apartment in [place]. Additional occupation/education comments: Disabled. Exam Narrative: GENERAL: Well-appearing, well-nourished, and in no acute distress. HEAD: Normocephalic, atraumatic. EYES: PERRLA and EOMI. ENT: Nares clear, no rhinorrhea or epistaxis. Mucous membranes moist. NECK: Supple. CHEST: Clear to auscultation. No respiratory distress. HEART: Regular rate and rhythm. No murmur heard. Normal peripheral pulses. ABDOMEN: Soft, nontender, nondistended, normal active bowel sounds. EXTREMITIES: Normal range of motion. No edema. There is tenderness to palpation in the left knee SKIN: Warm, dry, no rash. NEURO: No focal deficits. Alert and oriented x3. PSYCH: Normal mood and affect. Course Vital Signs Vital signs: Vital Signs Temperature 36.2 C L 10/08/22 04:21 Pulse Rate 88 10/08/22 04:21 Respiratory Rate 18 10/08/22 04:21 Blood Pressure 133/82 10/08/22 04:21 Pulse Oximetry 98 10/08/22 04:21 Oxygen Delivery Room Air 10/08/22 04:21 Temperature 36.2 C L 10/08/22 04:21 Pulse Rate 88 10/08/22 04:21 Respiratory Rate 18 10/08/22 04:21 Blood Pressure 133/82 10/08/22 04:21 Pulse Oximetry 98
[2022-10-08] MEDS: oxyCODONE/ACETAMINOPHEN (*CRX) 5-325 MG TABLET 1 TABLET PO (05:22)
== END 2022-10-08 06:26 | disposition home or self-care (01) ==
PROVIDERS: Emergency Provider Emergency Medicine
DX: S82.042A Displaced comminuted fracture of left patella, initial encounter for closed fracture (principal); I12.0 Hypertensive chronic kidney disease with stage 5 chronic kidney disease or end stage renal disease; N18.6 End stage renal disease; D64.9 Anemia, unspecified; G25.81 Restless legs syndrome; Z99.2 Dependence on renal dialysis; Z87.891 Personal history of nicotine dependence; W01.0XXA Fall on same level from slipping, tripping and stumbling without subsequent striking against object, initial encounter
CPT/HCPCS: 73562; 99284; A9270

== ENCOUNTER 2022-12-21 12:19 | Emergency (ER) | payer OTHER, SELFPAY ==
--- NOTE | ~2022-12-21 | XR_ITS ---
Left Knee Technique: AP, lateral, and sunrise views were obtained. Clinical History: Pain COMPARISON: 10/08/2022 Findings: Transverse fracture of the patella is again present, with possible minimally increased dist raction as compared to prior exam. Joint spaces are preserved without degenerative or erosive change. There is mild prepatellar soft tissue edema. No joint effusion is seen. Impression: Transverse fracture the patella again present, with possible minimally increased distraction as olga lidia red to prior exam. Prepatellar soft tissue edema. Reviewed, dictated and finalized at location M. Impression: Transverse fracture the patella again present, with possible minimally increase d distraction as compared to prior exam. Prepatellar soft tissue edema.
[2022-12-21 12:20] VITALS: BP 124/74; PULSE 96; RESP 16; TEMP 36.4; O2SAT 94
--- NOTE | 2022-12-21 13:01 | ED.GENADULT ---
HPI - General Adult General Chief complaint: Unspecified Stated complaint: shoulder & knee pain Time Seen by Provider: 12/21/22 12:50 History of Present Illness HPI narrative: Patient is a 62-year-old female presenting with abnormal x-ray. Patient resides in a nursing facility. She states that she fractured her left knee 2 months ago. They obtained an outpatient x-ray today and read it as an acute fracture so they brought her here. Patient denies any complaints and she states that she wants to go home. States that she already knew that her knee was fractured. States that her knee pain has dramatically improved over the last 2 months. Denies further complaints or injuries. Related Data Home Medications Medication Instructions Recorded Confirmed bupropion HCl 150 mg 24 hr tablet, 150 mg PO DAILY 08/05/21 10/13/22 extended release calcium acetate(phosphat bind) 667 667 mg PO TIDWM 08/05/21 10/13/22 mg capsule divalproex 250 mg tablet,delayed 250 mg PO TID 08/05/21 10/13/22 release simvastatin 40 mg tablet 40 mg PO HS 08/05/21 10/13/22 vitamin B complex and vitamin C 1 cap PO DAILY 08/05/21 10/13/22 no.20-folic acid 1 mg capsule (Triphrocaps) vitamin B complex-vitamin C-folic 1 tablet PO DAILY 08/05/21 10/13/22 acid 0.8 mg tablet (Jackie-Lm) Allergies Allergy/AdvReac Type Severity Reaction Status Date / Time hydrocodone Allergy Severe RASH Verified 10/13/22 11:43 aspirin Allergy Mild Unknown Verified 10/13/22 11:43 ibuprofen Allergy Mild Unknown Verified 10/13/22 11:43 Review of Systems Review of Systems: All systems reviewed & are unremarkable except as noted in HPI and below PMFSH Past Medical History Medical History Bipolar disorder Carpal tunnel syndrome Chronic anemia Depression with anxiety End-stage renal disease on hemodialysis Secondary to lithium toxicity. Gastric ulcer History of ganglion cyst Hypertension Restless leg syndrome Surgical History Surgical History History of colonoscopy with polypectomy History of tonsillectomy History of tubal ligation Status post creation of arteriovenous fistula (03/2015) Family History Family History Unknown Depression Hyperlipidemia Neuropathy Other Chronic obstructive pulmonary disease Diabetes mellitus Obstructive sleep apnea Social History Social History Social History: Surrogate decision maker: Jeb Ureña, mother. Code status: Full code. Smoking status: Former smoker Alcohol intake: never Substance use: never Additional living arrangements comments: The patient lives in an apartment in [place]. Additional occupation/education comments: Disabled. Exam Narrative: GENERAL: Chronically ill-appearing, nontoxic, in no acute distress, pleasant and cooperative HEAD: Normocephalic, atraumatic. EYES: PERRLA and EOMI. ENT: Mucous membranes moist. NECK: Supple. CHEST: No respiratory distress. HEART: Regular rate and rhythm ABDOMEN: nondistended EXTREMITIES: Normal range of motion. lidocaine patch in place left knee, no erythema, mild tenderness SKIN: Warm, dry, no rash. NEURO: No focal deficits. Alert and oriented x3. PSYCH: Normal mood and affect. Course Vital Signs Vital signs: Vital Signs Temperature 97.6 F 12/21/22 12:20 Pulse Rate 96 12/21/22 12:20 Respiratory Rate 16 12/21/22 12:20 Blood Pressure 124/74 12/21/22 12:20 Pulse Oximetry 94 12/21/22 12:20 Oxygen Delivery Room Air 12/21/22 12:20 Temperature 97.6 F 12/21/22 12:20 Pulse Rate 96 12/21/22 12:20 Respiratory Rate 16 12/21/22 13:21 Blood Pressure 141/82 H 12/21/22 13:21 Pulse Oximetry 100 12/21/22 13:21 Oxygen Delivery Room Air 12/21/22 12:20 Medical Decis
--- NOTE | 2022-12-21 13:07 | PC.NURSE ---
Attempted to call pt sister, Apoorva at [phone], with no answer.
--- NOTE | 2022-12-21 13:12 | PC.NURSE ---
Patrica, pt sister, returned call stating she will be on her way to come pick her up.
[2022-12-21 13:21] VITALS: BP 141/82; RESP 16; O2SAT 100
--- NOTE | 2022-12-21 13:28 | PC.NURSE ---
Attempted to call [facility] for report, was on hold for over 5 minutes waiting for the transfer.
--- NOTE | 2022-12-21 13:34 | PC.NURSE ---
Report given to [facility]. no questions asked at time of discharge. informed [facility] that patient will be coming back by her sister.
== END 2022-12-21 13:29 ==
LOC: ANHED 13:09
PROVIDERS: Emergency Provider Emergency Medicine; PCP Hospitalist
DX: S82.032D Displaced transverse fracture of left patella, subsequent encounter for closed fracture with routine healing (principal); I12.0 Hypertensive chronic kidney disease with stage 5 chronic kidney disease or end stage renal disease; N18.6 End stage renal disease; D64.9 Anemia, unspecified; G25.81 Restless legs syndrome; F41.8 Other specified anxiety disorders; F31.9 Bipolar disorder, unspecified; Z99.2 Dependence on renal dialysis; Z87.891 Personal history of nicotine dependence; X58.XXXD Exposure to other specified factors, subsequent encounter
CPT/HCPCS: 73562; 99283

== ENCOUNTER 2023-05-22 13:29 | Outpatient (CLI) | payer OTHER, SELFPAY ==
--- NOTE | ~2023-05-22 | MM_ITS ---
EXAMINATION: MM screening yair BI w jomar HISTORY: Screening mammogram TECHNIQUE: Craniocaudal and mediolateral oblique 3-D tomosynthesis images were obtained and synthetic 2-D images were generated. CAD analysis was submitted and interpreted. COMPARISON: 12/03/2021, 10/23/2014 bilateral screening mammogram examinations BREAST PARENCHYMAL COMPOSITION: There are scattered areas of fibroglandular density. FINDINGS: There is no evidence of suspicious mass, calcification, or architectural distortion to sugg est malignancy in either breast. There has been no suspicious interval change. IMPRESSION: 1. No mammographic evidence of malignancy. 2. Recommend routine screening mammography in one year. BI-RADS Category 1: Negative Reviewed, dictated and finalized at location A. LEX CARE NURSE
== END 2023-05-22 13:30 | disposition home or self-care (01) ==
LOC: ANHIMG 13:33
PROVIDERS: PCP Internal Medicine; Visit Provider Internal Medicine
DX: Z12.31 Encounter for screening mammogram for malignant neoplasm of breast (principal)
CPT/HCPCS: 77063; 77067

== ENCOUNTER 2024-12-30 07:46 | Outpatient (CLI) | payer OTHER, SELFPAY ==
--- NOTE | ~2024-12-30 | MM_ITS ---
EXAMINATION: MM screening [facility] BI w jomar HISTORY: Screening TECHNIQUE: Craniocaudal and mediolateral oblique 3-D tomosynthesis images were obtained and synthetic 2-D images were generated. CAD analysis was submitted and interpreted. COMPARISON: Comparison to multiple prior studies sequentially, with oldest reviewed study dated 06/2021. BREAST PARENCHYMAL COMPOSITION: Not Dense: The breasts are almost entirely fatty. FINDINGS: There is no evidence of suspicious mass, calcification, or architectural distortion to sugg est malignancy in either breast. There has been no suspicious interval change. IMPRESSION: 1. No mammographic evidence of malignancy. 2. Recommend routine screening mammography in one year. BI-RADS Category 1: Negative Reviewed, dictated and finalized at location B.
--- OUTSIDE RECORDS SUMMARY | 2024-12-30 07:54 | XMS_ITS | Clinical Summary ---
Author Organization [facility] Facility Address [address] [place] [address] Care Team Providers Care Wick And Base Assembler Name Role Phone Unavailable Primary Care Provider Unavailabl e Medications carbidopa-levod opa (SINEMET) 10-100 MG per tablet Take 1 tablet by mouth daily 30 tablet 5 06/14/2021 Active Calcium Acetate, Phos Binder, 667 MG capsule Take 2 capsules by mouth 3 times daily with meals and 2 times daily with snacks. 300 capsule 5 06/14/2021 Active B Stesrfc-K-Dbeqo Acid (Triphrocaps) 1 MG capsule Take 1 capsule by mouth 1 (one) time each day 30 capsule 06/14/2021 Active B Toxupya-D-Akevs Acid (Jackie-Ml) tablet Take 1 tablet by mouth 1 (one) time each day 30 tablet 06/14/2021 Active Social History Tobacco Use Types Packs/Day Years Used Date Smoking Tobacco: Never Assessed Comments Unknown Sex and Gender Information Value Date Recorded Sex Assigned at Not on file Legal Sex Female 6:10 PM EDT Gender Identity Not on file Sexual Orientation Not on file Plan of Treatment Health Maintenance Due Date Last Done Comments Breast Cancer Screening 1960 Pneumococcal Vaccine: 50+ Years (1 of 2 - PCV) 980 Hepatitis B Vaccine (1 of 5 - Risk Dialysis 4-dose series) 1981 Colorectal Cancer Screening: Annual FOBT 2010 Colorectal Cancer Screening: Colonoscopy 2010 Colorectal Cancer Screening: Sigmoidoscopy 2010 Influenza Vaccine (#1) 2025 Insurance [facility] (PIL)
--- OUTSIDE RECORDS SUMMARY | 2024-12-30 07:54 | XMS_ITS ---
Author Organization [facility] Address [address] [place] [address] Care Team Providers Care Appraiser Timber Name Role Phone Linda Wall MD Primary Care Provider + Dany Armendariz MD Unavailable [phone] Dialysis Access Sites Type Status Location Placement Date Removal Da te Hemodialysis Cath Double Active Right N laura (side) - Anterior 01/14/2021 Allergies Active Allergy Reactions Criticality Noted Date Comments Aspirin Hydrocodone Hives Medium 07/23/2015 Hives Hydrocodone-Acetaminophen Urticaria Medium 01/25/2021 Medications buPROPion XL (WELLBUTRIN XL) 150 mg 24 hr tabletIndicatio ns:Anxiety with Depression Take 150 mg by mouth daily Active divalproex DR (DEPAKOTE) 250 mg EC tablet Take 250 mg by mouth 3 (three) times a day Active calcium acetate,phospha t bind, (PHOSLO) 667 mg capsule Take 1,334 mg by mouth 3 (three) times a day with meals Active carbidopa-levod opa (SINEMET) 10-100 mg per tabletIndicatio ns:Parkinsonism Take 1 tablet by mouth continuously as needed (Prn before dialysis) Active simvastatin (ZOCOR) 40 mg tablet Take 40 mg by mouth nightly Active vitamin B complex-vitamin C-folic acid (NEPHRO-KENNETH) 0.8 mg tablet Take 1 tablet by mouth daily 0 Active vitamin B complex with C-folic acid (NEPHROCAP) 1 mg capsule Take 1 capsule by mouth daily 1 Active calcium carbonate (OS-MAYNOR) 1,500 mg (600 mg of elemental calcium) tablet Take by mouth Active chlorpheniramin e (CHLOR-TRIMETON ) 4 mg tablet Take by mouth Ac tive dextrin (Fiber, dextrin,) 3 gram/3.5 gram powder Take by mouth Active cyclobenzaprine HCl (FLEXERIL ORAL) 5 mg Active raNITIdine (ZANTAC) 15 mg/mL syrup Rx: Ranitidine , TAKE: 1 tab Active cholecalciferol (VITAMIN D-3) 25 mcg (1,000 unit) tablet Take 1,000 Units by mouth daily Active traZODone (DESYREL) 50 mg tablet Take 50 mg by mouth nightly Active Jackie-Kenneth 0.8 mg tablet Take by mouth daily Active clonazePAM (KlonoPIN) 0.5 mg tablet 0.5 mg 2 (two) times a day Active clonazePAM (KlonoPIN) 0.5 mg tablet Take 0.5 mg by mouth 4 (four) times a day Active citalopram (CeleXA) 40 mg tablet 40 mg daily Active Active Problems Problem Noted Date Diagnosed Date Encounter for screening colonoscopy 11/03/2021 Overview (11/03/2021): Added automatically from request for surgery [id number] Bipolar disorder 01/13/2021 Assessment & Plan (01/13/2021 5:09 AM CDT): Continue Depakote Tobacco use 01/13/2021 Assessment & Plan (01/13/2021 5:09 AM CDT): Patient currently smoking 5 cigarettes a day. Continue with nicotine patch. RLS (restless legs syndrome) 01/13/2021 Assessment & Plan (01/13/2021 5:09 AM CDT): Patient takes Sinemet daily prior to dialysis, will order this p.r.n. Encounter regarding vascular access for dialysis for end-stage renal disease 01/13/2021 Assessment & Plan (01/13/2021 5:08 AM CDT): Patient has a clotted AV graft on her right thigh. Spoke with Dr. Armendariz who recommended General surgery consult for tunneled catheter placement this morning. Patient was screened for COVID, awaiting results. Will consult General surgery. Patient NPO for possible procedure. End-stage renal disease ([facility]) 09/08/2015 Assessment & Plan (01/13/2021 5:09 AM CDT): Patient's last full dialysis session was on 01/07. Dr. Armendariz has been consulted. Social History Tobacco Use Types Packs/Day Years Used Date Smoking Tobacco: Former Cigarettes 0.3 25 Smokeless Tobacco: Never Tobacco Cessation:Ready to Q uit: No; Counseling Given: No Alcohol Use Standard Drinks/Week Comments Not Currently 0 (1 standard drink = 0.6 oz pur e alcohol) AUDIT-C Answer Date Recorded Q1: How often do you have a drink containing alc ohol? 2-4 times a month 01/14/2021 Q2: How many drinks containi ng alcohol do you have on a typical day when you are drinking? 1 or 2 01/14/2021 Q3: How often do you have si x or more drinks on one occasion? Never 01/14/2021 Comments No Sex and Gender Information Value Date Recorded Sex Assigned at Not on file Legal Sex Female 10:35 PM PRODUCTION CONTROL EXPEDITER Gender Identity Not on file Sexual Orientation Not on file Last Filed Vital Signs Vital Sign Reading Time Taken Comments Blood Pressure 136/80 08/03/2021 1:56 PM PRODUCTION CONTROL EXPEDITER Pulse 98 08/03/2021 1:56 PM PRODUCTION CONTROL EXPEDITER Temperature 36.6 C (97.8 F) 08/03/2021 1:56 PM PRODUCTION CONTROL EXPEDITER Respiratory Rate 18 08/03/2021 1:56 PM PRODUCTION CONTROL EXPEDITER Oxygen Saturation 98% 08/03/2021 1:56 PM PRODUCTION CONTROL EXPEDITER Inhaled Oxygen Concentration - - Weight 54.4 kg (120 lb) 08/03/2021 1:56 PM PRODUCTION CONTROL EXPEDITER Height 157.5 cm (5' 2) 08/03/2021 1:56 PM PRODUCTION CONTROL EXPEDITER Body Mass Index 21.95 08/03/2021 1:56 PM PRODUCTION CONTROL EXPEDITER
--- OUTSIDE RECORDS SUMMARY | 2024-12-30 07:54 | XMS_ITS | Patient Health Record ---
Author Organization [facility] Address [address] [facility] [address] [place] [address] Care Team Providers Care Hose Coupling Joiner Name Role Phone Carol Jesika Unavailable [phone] Reason For Referral No Information Medications Medication SIG (Take, Route, Frequency, Duration) Notes Start Date End Date Status Divalproex Sodium 125 MG Oral Active Plan Of Treatment No Information
--- OUTSIDE RECORDS SUMMARY | 2024-12-30 07:54 | XMS_ITS | Encounter Summary ---
Author Organization [facility] Address [address] [place] [address] Phone Care Team Providers Care Linseed Oil Temperer Name Role Phone Unavailable Primary Care Provider Unavailabl e Encounter Details Date Type Department Care Team (Late st Contact Info) Description 11/03/2020 Orders Only [facility]. [address] [facility] [place] [address] Tiffany Oneil MA [address] [facility] [place] [address] Chronic thoracic back pain Social History Tobacco Use Types Packs/Day Years Used Date Smoking Tobacco: Never Assessed Comments Unknown Sex and Gender Information Value Date Recorded Sex Assigned at Not on file Legal Sex Female 6:10 PM EDT Gender Identity Not on file Sexual Orientation Not on file documented as of this encounter Plan of Treatment Not on file documented as of this encounter Visit Diagnoses Diagnosis Chronic thoracic back pain documented in this encounter
--- OUTSIDE RECORDS SUMMARY | 2024-12-30 07:54 | XMS_ITS | Referral Summary ---
Author Organization [facility] Address [address] [place] [address] Care Team Providers Care Reinforcing Bar Setter Name Role Phone Linda Wall MD Primary Care Provider + Dany Armendariz MD Unavailable [phone] Allergies Active Allergy Reactions Criticality Noted Date [...] (11/03/2021): Added automatically from request for surgery [id number] Bipolar disorder 01/13/2021 Assessment & Plan (01/13/2021 [...] NPO for possible procedure. End-stage renal disease (CMS/HCC) 09/08/2015 Assessment & Plan (01/13/2021 5:09 AM [...] on file Legal Sex Female 10:35 PM FARM MANAGER Gender Identity Not on file Sexual Orientation Not on file Last Filed Vital Signs Vital Sign Reading Time Taken Comments Blood Pressure 136/80 08/03/2021 1:56 PM FARM MANAGER Pulse 98 08/03/2021 1:56 PM FARM MANAGER Temperature 36.6 C (97.8 F) 08/03/2021 1:56 PM FARM MANAGER Respiratory Rate 18 08/03/2021 1:56 PM FARM MANAGER Oxygen Saturation 98% 08/03/2021 1:56 PM FARM MANAGER Inhaled Oxygen Concentration - - Weight 54.4 kg (120 lb) 08/03/2021 1:56 PM FARM MANAGER Height 157.5 cm (5' 2) 08/03/2021 1:56 PM FARM MANAGER Body Mass Index 21.95 08/03/2021 1:56 PM FARM MANAGER Plan of Treatment Not on file Medical Devices Implanted Type Area Pay Per Click Strategist Device Identifier Shelf Expiration Date Model / Serial / Lot [employer] [id number] Duraflow Embosafe 15.5fr 28cm Basic 2 Lumen Kit Catheter - [id number] Implanted:Qty: 1 on 01/14/2021 by Jeremy Mathews MD at [facility] Right: Chest [employer] 07/05/2023 [id number] / / [id number] Insurance [facility] Advance Directives For more information, please contact: [phone] * Full Code (Latest Code Status on File) Date Activated Date Inactivated Comments 01/13/2021 5:07 AM 01/15/2021 6:14 PM Care Teams Reinforcing Bar Setter Relationship Specialty Start Date End Date Linda Wall MD [address] [place] [address] PCP - General 10/31/17 Dany Armendariz MD [address] [place] [address] Consulting Physician Nephrology 01/15/21
--- OUTSIDE RECORDS SUMMARY | 2024-12-30 07:54 | XMS_ITS | Clinical Summary ---
Author Organization [facility] Address [address] [place] [address] Care Team Providers Care Trailer Truck Driver Name Role Phone Linda Wall MD Primary Care Provider + Dany Armendariz MD Unavailable [phone] Allergies Active Allergy Reactions Criticality Noted [...] (11/03/2021): Added automatically from request for surgery [id number] Bipolar disorder 01/13/2021 Assessment & Plan (01/13/2021 [...] on 01/07. Dr. Armendariz has been consulted. Surgical History Surgery Date Site/Laterality Comments OTHER SURGICAL HISTORY several surgeries for dialysis access VASCULAR SURGERY Medical History Medical History Date Comments ESRD (end stage renal disease) ([facility]) Manic depression ([facility]) Arthritis Hypercholesteremia Gastric reflux Depression Osteoarthritis Family History Medical History Relation Name Comments Emphysema Father Emphysema lung - (Added by TW Conv) Arthritis Other Mental illness Other Relation Name Status Comments Father Other Social History Tobacco Use Types Packs/Day Years [...] on file Legal Sex Female 10:35 PM REGISTERED ASSOCIATE Gender Identity Not on file Sexual Orientation Not on file Obstetrics History Last Filed Vital Signs Vital Sign Reading Time Taken Comments Blood Pressure 136/80 08/03/2021 1:56 PM REGISTERED ASSOCIATE Pulse 98 08/03/2021 1:56 PM REGISTERED ASSOCIATE Temperature 36.6 C (97.8 F) 08/03/2021 1:56 PM REGISTERED ASSOCIATE Respiratory Rate 18 08/03/2021 1:56 PM REGISTERED ASSOCIATE Oxygen Saturation 98% 08/03/2021 1:56 PM REGISTERED ASSOCIATE Inhaled Oxygen Concentration - - Weight 54.4 kg (120 lb) 08/03/2021 1:56 PM REGISTERED ASSOCIATE Height 157.5 cm (5' 2) 08/03/2021 1:56 PM REGISTERED ASSOCIATE Body Mass Index 21.95 08/03/2021 1:56 PM REGISTERED ASSOCIATE Plan of Treatment Not on file Medical Devices Implanted Type Area Industrial X Ray Operator Device Identifier Shelf Expiration Date Model / Serial / Lot [employer] [id number] Duraflow Embosafe 15.5fr 28cm Basic 2 Lumen Kit Catheter - [id number] Implanted:Qty: 1 on 01/14/2021 by Jeremy Mathews MD at [facility] Right: Chest [employer] 07/05/2023 [id number] / / [id number] Insurance [facility] Advance Directives For more information, please contact: [phone] * Full Code (Latest Code Status on File) Date Activated Date Inactivated Comments 01/13/2021 5:07 AM 01/15/2021 6:14 PM Care Teams Trailer Truck Driver Relationship Specialty Start Date End Date Linda Wall MD [address] [place] [address] PCP - General 10/31/17 Dany Armendariz MD [address] [place] [address] Consulting Physician Nephrology 01/15/21
--- OUTSIDE RECORDS SUMMARY | 2024-12-30 07:54 | XMS_ITS | Clinical Summary ---
Author Organization [facility] Address [address] [place] [address] Phone Care Team Providers Care Mailing Machine Helper Name Role Phone Yanci Singletary MD Primary Care Provider [phone] Allergies No known active allergies Medications clonazePAM (KLONOPIN) 0.5 MG Tablet Take 0.5 mg by mouth 4 times daily. Active valproic acid (DEPAKENE) 250 MG Capsule Take 250 mg by mouth 3 times daily. Active buPROPion (WELLBUTRIN) 300 MG TABLET SR 24 HR XL tablet Take 300 mg by mouth every morning. Active ranitidine (ZANTAC) 150 MG Tablet Take 300 mg by mouth 2 times daily. Active simvastatin (ZOCOR) 40 MG Tablet Take 40 mg by mouth every evening. Active vitamin D (CHOLECALCIFERO L) 1000 UNIT Tablet Take 1,000 Units by mouth daily. Active Calcium Carbonate (CALCIUM 600 PO) Take by mouth. Activ e citalopram (CELEXA) 40 MG Tablet Take 40 mg by mouth daily. Active polyethylene glycol (MIRALAX) Powder Use entire 255g bottle with 64oz of clear liquid as directed for colonoscopy prep. 2 Bottle 7 Active calcium acetate (PHOSLO) 667 MG Capsule Take 1 Cap by mouth 3 times daily. Active B Pxbzqov-F-Kinfw Acid (NEPHRO-KENNETH PO) Take by mouth. Activ e carbidopa-levod opa (SINEMET) 10-100 MG Tablet Take 1 Tab by mouth 3 times daily. Active divalproex (DEPAKOTE SPRINKLE) 125 MG Capsule Delayed Release Sprinkle Take 125 mg by mouth 2 times daily. Patient takes 125 mg in the AM and 250 mg in the PM. Active Bisacodyl (LAXATIVE PO) Take by mouth. A ctive Chlorpheniramin e Maleate (ALLERGY PO) Take by mouth. Ac tive FIBER PO Take by mouth. Activ e Family History Medical History Relation Name Comments Diabetes Brother Diabetes Father High Cholesterol Mother Migraines Mother Diabetes Sister Relation Name Status Comments Brother Father Mother Alive Sister Social History Tobacco Use Types Packs/Day Years Used Date Smoking Tobacco: Former Alcohol Use Standard Drinks/Week Comments No 0 (1 standard drink = 0.6 oz pur e alcohol) Comments No Sex and Gender Information Value Date Recorded Sex Assigned at Not on file Legal Sex Female 7:11 PM CDT Gender Identity Not on file Sexual Orientation Not on file Last Filed Vital Signs Vital Sign Reading Time Taken Comments Blood Pressure 113/74 08/06/2015 2:36 PM LINE PULLER Pulse 100 08/06/2015 2:36 PM LINE PULLER Temperature 35.4 C (95.7 F) 08/06/2015 2:36 PM LINE PULLER Respiratory Rate 20 08/06/2015 2:36 PM LINE PULLER Oxygen Saturation 96% 08/06/2015 11: 15 AM LINE PULLER Inhaled Oxygen Concentration - - Weight 63.8 kg (140 lb 10.5 oz) 016 10:13 AM LINE PULLER Height 160 cm (5' 3) 08/04/2015 8:22 PM LINE PULLER Body Mass Index 24.92 08/04/2015 8:22 PM LINE PULLER Plan of Treatment Health Maintenance Due Date Last Done Comments TdaP Immunization 1961 Pap Smear 1982 Cervical Cancer Screening (CCS) 1991 HPV/Cotest 1991 Cologuard 2006 Immunochemical Fecal Occult Blood 2006 Pneumococcal Immunization (5 0+ years) (1 of 1 - PCV) 2011 Zoster Immunization (1 of 2) 2011 Colonoscopy 05/22/2018 05/22/2017 Colorectal Cancer Screening 05/22/2018 SARS-COV-2 Immunization ( season) 2024 09/07/2020, 08/17/2020 Influenza Immunization (#1) 2025 04/30/2014 Respiratory Syncytial Virus (RSV) Immunization (Adult) (1 - 1-dose 75+ series) 2036 Hepatitis C Virus (HCV) Screening Completed 08/04/2015 Hepatitis B Immunization Aged Out No longer eligible based on patient's age to complete this topic Human Papillomavirus (HPV) Immunization Aged Out No longer eligible b ased on patient's age to complete this topic Meningococcal Immunization (ACWY) Aged Out No longer eligible b ased on patient's age to complete this topic Rotavirus Immunization Aged Out No lo nger eligible based on patient's age to complete this topic Procedures Procedure Name Priority Date/Time Associated Diagnosis Comments COLONOSCOPY Routine 05/22/2017 HEPATITIS PANEL ACUTE (AHP) Routine 08/04/2015 6:10 PM LINE PULLER from Last 3 Months or Most Recently Relevant to Health Maintenance Results * COLONOSCOPY (05/22/2017) Kash Weinstein DO PROCEDURE/MINOR SURGICAL ORDERA BLES Final Result * Hepatitis Panel Acute (AHP) (08/04/2015 6:10 PM LINE PULLER) HEPATITIS A IGM ANTIBODY NON DETECTED NON DETECTED 08/05/2015 10:06 PM LINE PULLER [facility] Comment: IGM Antibodies to HAV not detected. Does not exclude early acute or recovered HAV infection. HEP B CORE AB (IGM) NON DETECTED NON DETECTED 08/05/2015 10:06 PM LINE PULLER [facility] Comment: IGM anti-HBC not detected. Does not exclude the possibility of exposure to or infection with HBV. HEPATITIS B SURFACE ANTIGEN NON DETECTED NON DETECTED 08/05/2015 10:06 PM LINE PULLER [facility] hepatitis C antibody 0.04 <1 S/CO 08/05/2015 10:06 PM LINE PULLER [facility] Comment: Signal/Cutoff ratio < 0.79 is Nondetected Signal/Cutoff ratio 0.80-0.99 is Grayzone Signal/Cutoff ratio > 0.99 is Detected Supplemental assays are recommended if signal/cutoff ratio is >/=1.00. Signal/cutoff ratio result >/= 5.00 is 97% predictive of positivity for recombinant immunoblot assay (RIBA) and will be reported to the [place] Department of Public Health as required. Blood specimen (specimen) External Port Venous Access Device (Central Line, PICC Line) / Unknown 08/04/2015 6:10 PM LINE PULLER 08/04/2015 6:14 PM LINE PULLER us Dany Armendariz MD HEMATOLOGY ORDERABLES Final Re sult [facility] [address] [place] [address] from Last 3 Months or Most Recently Relevant to Health Maintenance Insurance MEDICAID [employer] Advance Directives * Full Code (Latest Code Status on File) Date Activated Date Inactivated Comments 08/04/2015 10:15 PM 08/06/2015 5:37 PM Full Code: FULL ARREST: Attempt Resuscitation/CPR and use intubation and mechanical ventilation as indicated. PRE-ARREST: Use all measures to stabilize patient. Care Teams Mailing Machine Helper Relationship Specialty Start Date End Date Yanci Singletary MD PCP - General Internal Medicine 08/04/15
--- OUTSIDE RECORDS SUMMARY | 2024-12-30 07:56 | XMS_ITS | Clinical Summary ---
Author Organization [facility] Address [address] [place] [address] Care Team Providers Care Product Transfer Pumper Name Role Phone None, Physician Primary Care Provider Unavailabl e Source Comments [facility],non-owned Affiliates and Associated Physician Practices is amultiple site organization consisting of ambulatory clinics and hospital sitesin [place], [place], [place] and [place]. This disclosure is being madepursuant to the Care Everywhere program and may not contain all information available regarding this patient. Last updated 18.[facility] Allergies Active Allergy Reactions Criticality Noted Date Comments Aspirin Unknown 01/17/2023 Hydrocodone Urticaria Medium 07/23/2015 Hives Ibuprofen Unknown 01/17/2023 Hydrocodone-Acetaminophen Urticaria Medium 01/25/2021 Medications * Be aware that medications may not be up to date on this document. Alwaysverify current medications with the patient. carbidopa-levod opa (SINEMET) 10-100 MG tablet Take 1 (one) tablet by mouth Give in dialysis on Monday, & Monday Active buPROPion SR 12hr (Wellbutrin-SR) 150 MG tablet 3 Active calcium acetate (Phoslo) 667 MG capsule Take 1 (one) capsule by mouth 3 times daily Active gabapentin (Neurontin) 300 MG capsule 3 Active pramipexole (Mirapex) 0.125 MG tablet 3 Active QUEtiapine (SEROquel) 100 MG tablet 3 Active QUEtiapine (SEROquel) 50 MG tablet 3 Active simvastatin (Zocor) 40 MG tablet Take 1 (one) tablet by mouth at bedtime Active calcium carbonate (Caltrate) 600 MG tablet Active B Wpwlwhc-H-Frxdg Acid (Renal-Ml) 0.8 MG TABS Active docusate sodium (Colace) 100 MG capsule Take 1 (one) capsule by mouth every 24 hours Active oxyCODONE-aceta minophen (Percocet) 5-325 MG tablet Take 1 (one) tablet by mouth every 6 hours as needed for Pain Active omeprazole (PriLOSEC) 20 MG capsule Take 1 (one) capsule by mouth daily before breakfast Active Active Problems No known active problems Social History Tobacco Use Types Packs/Day Years Used Date Smoking Tobacco: Some Days Cigarettes Smokeless Tobacco: Never Tobacco Cessation:Ready to Q uit: No; Counseling Given: Yes Alcohol Use Standard Drinks/Week Comments Yes 0 (1 standard drink = 0.6 oz pur e alcohol) once or twice a month Comments Unknown Sex and Gender Information Value Date Recorded Sex Assigned at Not on file Legal Sex Female 11:12 AM CDT Gender Identity Not on file Sexual Orientation Not on file Last Filed Vital Signs Vital Sign Reading Time Taken Comments Blood Pressure 139/116 01/25/2021 2:55 PM CDT Pulse 91 01/25/2021 3:00 PM CDT Temperature 36.5 C (97.7 F) 01/25/2021 1:41 PM CDT Respiratory Rate 9 01/25/2021 3:00 PM CDT Oxygen Saturation 100% 01/25/2021 3:00 PM CDT Inhaled Oxygen Concentration - - Weight 71.2 kg (157 lb) 09/19/2023 12:51 PM CDT Height 158.8 cm (5' 2.5) 09/19/2023 12:51 PM CD T Body Mass Index 28.26 09/19/2023 12:51 PM CDT Plan of Treatment Health Maintenance Due Date Last Done Comments COLOGUARD (AGES 45-75) - COL ON CA SCREENING 1961 COLON MONITORING 1961 COLONOSCOPY - COLON CA SCREENING 1961 CT COLONOGRAPHY - COLON CA SCREENING 1961 Colorectal Cancer Screening 1961 FIT - COLON CA SCREENING 1961 FLEX SIG - COLON CA SCREENING 1961 MAMMOGRAM 1961 HIV SCREENING 1976 HEPATITIS C SCREENING 03/30/1979 DTAP/TDAP/TD VACCINES (1 - Tdap) 1980 PNEUMOCOCCAL VACCINE 50+ (1 of 2 - PCV) 1980 PAP SMEAR 1982 ZOSTER VACCINE (1 of 2) 2011 SCREENING FOR DIABETES 01/12/2024 , 01/11/2021 COVID-19 VACCINE (1 - 2023-2 5 season) 2024 DEPRESSION SCREENING 06/05/2024 INFLUENZA VACCINE (#1) 2025 Respiratory Syncytial Virus (RSV) Vaccine Pt: or over 60 yrs (1 - 1-dose 75+ series) 2036 HEPATITIS B VACCINE Aged Out No longe r eligible based on patient's age to complete this topic HIB VACCINE Aged Out No longer eligi ble based on patient's age to complete this topic HPV VACCINE Aged Out No longer eligi ble based on patient's age to complete this topic MENINGOCOCCAL (Group B) VACCINE SHARED DECISION-MAKING Aged Out No longer eligible based on patient's age to complete this topic MENINGOCOCCAL GROUPS A/C/Y/W VACCINE Aged Out No longer eligible b ased on patient's age to complete this topic Insurance [facility] Care Teams Product Transfer Pumper Relationship Specialty Start Date End Date None, Physician [address] [place] [address] PCP - General 01/17/23
== END 2024-12-30 07:47 | disposition home or self-care (01) ==
LOC: CHSIMG 07:51
PROVIDERS: Visit Provider Internal Medicine
DX: Z12.31 Encounter for screening mammogram for malignant neoplasm of breast (principal)
CPT/HCPCS: 77063; 77067